=== PATIENT | female | born 1950 | race Caucasian/White ===

== ENCOUNTER → 2016-02-28 | Outpatient (CLI) | payer BC ==
--- NOTE | 2016-02-28 21:23 | WWHP ---
DATE OF SERVICE: 02/28/2016. CHIEF COMPLAINT: The patient is here for her routine gynecologic exam and mammogram. HPI: This is an 85-year-old, G2, P2 with an LMP of 2001. The patient is without gynecologic complaints and denies any postmenopausal bleeding. PAST MEDICAL HISTORY: Chronic hypertension, arthritis, and gastroesophageal reflux disease and irritable bowel syndrome. MEDICATIONS: 1. Metoprolol 100 mg b.i.d. 2. Enalapril. 3. Hydrochlorothiazide 5/12.5 1 daily. 4. Dicyclomine 10 mg daily. 5. Naproxen 500 mg b.i.d. 6. Omeprazole 20 mg b.i.d. 7. Multivitamin daily. 8. Vitamin for her eye daily. 9. Aspirin 325 mg daily. 10. Vitamin D3 1000 units daily. 11. Garlic supplement 100 mg daily. 12. Glucosamine with chondroitin b.i.d. 13. Zyrtec 10 mg daily. 14. Magnesium 400 mg daily. ALLERGIES TO VICODIN AND MORPHINE. 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 FAMILY HISTORY: Unchanged from the 2015 H&P. REVIEW OF SYSTEMS: She has lost 5 pounds over the last year. She denies respiratory, cardiac, or GI problems. PHYSICAL EXAM: Blood pressure 119/77. Height 5 feet 9 inches. Weight 217 pounds. Temperature 98.1, pulse 82. This a well-developed, well-nourished white female who is alert and oriented x3 in no acute distress. HEENT is within normal limits. NECK: Supple without mass or thyromegaly. CHEST AND LUNGS: Clear to auscultation. HEART: Regular rate and rhythm. Breasts are without mass or discharge. Axillary exam is negative for adenopathy. BACK: Negative for CVA tenderness. ABDOMEN: Soft, nontender, without palpable masses. PELVIC EXAM: External genitalia reveals mild atrophy without lesions. Cervix and vagina reveal mild atrophy without lesions. There is no evidence of prolapse. The uterus is midposition, nongravid size and nontender. No palpable adnexal masses or tenderness. Rectovaginal exam is negative for mass or tenderness and is negative for occult blood. EXTREMITIES: Nontender. IMPRESSION: A 65-year-old menopausal female with normal gynecologic exam. PLAN: 1. Pap smear was deferred, since she had a normal one less than 2 years ago. 2. Self-breast examination was discussed. 3. Mammogram will be done today. 4. Osteoporosis prevention was discussed. I have recommended bone density screening. She is declining this at this time. 5. She will return in one year.
--- NOTE | 2016-03-01 07:47 | MM ---
Reason for exam: screening (asymptomatic). Last mammogram was performed 1 year and 1 month ago. History: Patient is postmenopausal. Family history of breast cancer in aunt. Physical Findings: A clinical breast exam by your physician is recommended on an annual basis and results should be correlated with mammographic findings. MG Screening Mammo w CAD Bilateral CC and MLO view(s) were taken. Prior study comparison: January 25, 2015, bilateral MG screening mammo w CAD. October 06, 2013, bilateral MG screening mammo w CAD. August 19, 2012, bilateral digital screening mammo w/CAD. There are scattered fibroglandular densities. No significant changes when compared with prior studies. ASSESSMENT: Negative, BI-RAD 1 RECOMMENDATION: Routine screening mammogram of both breasts in 1 year.
== END | disposition home or self-care (01) ==
LOC: WWCWWP 15:43
PROVIDERS: ATTEND Obstetrics & Gynecology
DX: Z12.31 Encounter for screening mammogram for malignant neoplasm of breast (principal)

== ENCOUNTER 2016-05-02 15:32 | Emergency (ER) | payer BC, OTHER ==
[2016-05-02] MEDS ORDERED: LORazepam 2 MG/ML SYRINGE IV STA (15:41)
[2016-05-02] MEDS ORDERED: SODIUM CHLORIDE 0.9% 1,000 ML IV STA (15:41)
[2016-05-02] MEDS ORDERED: HYDROmorphone 1 MG/ML 1 ML SYRINGE IVP STA (15:41)
[2016-05-02 15:49] VITALS: BP 170/81; PULSE 106; RESP 18
--- NOTE | 2016-05-02 15:59 | ED ---
General Adult HPI - General Chief complaint: Trauma Stated complaint: Trauma Time Seen by Provider: 05/02/16 15:40 Source: EMS, RN notes reviewed, old records reviewed Mode of arrival: EMS Limitations: no limitations - History of Present Illness Initial comments: This is a 65-year-old female to the ER today for evaluation regards to trauma. Patient has history of high blood pressure and takes aspirin. Patient had a fall AT work today. She fell in paling her left Sams and nasal cavity on a piece of metal at is some half is inch in diameter and about 5 inches long. It entering her left Sams and nasal cavities to her skin. Patient at this time denies loss of consciousness has no neurological deficits no dizziness, no problems breathing - Related Data Home Medications Medication Instructions Recorded Confirmed Dicyclomine [Bentyl] 10 mg PO TID 02/01/15 05/02/16 Enalapril/Hydrochlorothiazide 1 tab PO DAILY 02/01/15 05/02/16 [Vaseretic 5-12.5 mg] Metoprolol Tartrate [Lopressor] 100 mg PO BID 02/01/15 05/02/16 Naproxen [Naproxen] 500 mg PO BID 02/01/15 05/02/16 Omeprazole [PriLOSEC] 20 mg PO DAILY 02/01/15 05/02/16 Allergies Allergy/AdvReac Type Severity Reaction Status Date / Time acetaminophen [From Vicodin] AdvReac Nausea & Verified 02/02/15 09:05 Vomiting hydrocodone bitartrate AdvReac Nausea & Verified 02/02/15 09:05 [From Vicodin] Vomiting morphine AdvReac Nausea & Verified 02/02/15 09:05 Vomiting Review of Systems ROS Statement: Those systems with pertinent positive or pertinent negative responses have been documented in the HPI. ROS Other: All systems not noted in ROS Statement are negative. Past Medical History Past Medical History: GERD/Reflux, Hypertension, Osteoarthritis (OA) History of Any Multi-Drug Resistant Organisms: None Reported Past Surgical History: Joint Replacement, Orthopedic Surgery, Tonsillectomy, Tubal Ligation Additional Past Surgical History / Comment(s): LT KNEE SCOPE. LT CARMITA. COLONOSCOPY Past Anesthesia/Blood Transfusion Reactions: No Reported Reaction Smoking Status: Former smoker Past Alcohol Use History: None Reported Additional Past Alcohol Use History / Comment(s): ONLY SMOKED FOR A FEW YEARS AGE 22 Past Drug Use History: None Reported - Past Family History Father Family Medical History: Deep Vein Thrombosis (DVT) General Exam Limitations: no limitations General appearance: alert, in no apparent distress Head exam: Absent: atraumatic (Patient does have metallic foreign body into NaSal cavity, the left lateral direction, mild surrounding bleeding) Eye exam: Present: normal appearance, PERRL, EOMI. Absent: scleral icterus, conjunctival injection, periorbital swelling ENT exam: Present: normal exam, mucous membranes moist Neck exam: Present: normal inspection. Absent: tenderness, meningismus, lymphadenopathy Respiratory exam: Present: normal lung sounds bilaterally. Absent: respiratory distress, wheezes, rales, rhonchi, stridor Cardiovascular Exam: Present: regular rate, normal rhythm, normal heart sounds. Absent: systolic murmur, diastolic murmur, rubs, gallop, clicks GI/Abdominal exam: Present: soft, normal bowel sounds. Absent: distended, tenderness, guarding, rebound, rigid Extremities exam: Present: normal inspection, full ROM, normal capillary refill. Absent: tenderness, pedal edema, joint swelling, calf tenderness Back exam: Present: normal inspection Neurological exam: Present: alert, oriented X3, CN II-XII intact Psychiatric exam: Present: normal affect, normal mood Skin exam: Present: warm, dry, intact, normal color. Absent: rash Course Vital Signs 05/02/16 15:35 Pulse Rate 106 H Respiratory 18 Rate Blood Pressure 170/81 O2 Sat by Pulse 99 Oximetry - Reevaluation(s) Reevaluation #1: 05/02/16 16:58 Call made [facility] for transfer, patient's neurosurgeon Dr. Osorio is currently through [facility] and requesting transfer to that hospital. In speaking with [facility], they are going to be accepting of transfer Reevaluation #2: 05/02/16 16:58 Spoke with family and patient, they're informed of severity of injury, need for surgical removal, questions are answered Reevaluation #3: 05/02/16 16:59 Patient is unanimously stable, resting comfortably EKG Findings - EKG Comments: EKG Findings:: EKG shows sinus tachycardia rate 103, VA 136, QRS 76, QTc 461 Medical Decision Making - Medical Decision Making 65 female to ER for evaluation of fall, with impalement of penetrating object into left neck, object into nasal cavity and fracture of cribriform plate w pneumocephalus, patient will be transported to care of Dr Osorio neurosurgery for removal of foreign body, patient given adequate pain control and IV unasyn for abx prophylaxis - Lab Data Result diagrams: 05/02/16 15:46 05/02/16 15:46 Lab Results 05/02/16 05/02/16 05/02/16 Range/Units 15:46 15:46 15:46 WBC 9.7 (3.8-10.6) k/uL RBC 4.96 (3.80-5.40) m/uL Hgb 14.4 (11.4-16.0) gm/dL Hct 43.4 (34.0-46.0) % MCV 87.4 (80.0-100.0) fL MCH 29.0 (25.0-35.0) pg MCHC 33.2 (31.0-37.0) g/dL RDW 12.5 (11.5-15.5) % Plt Count 212 (150-450) k/uL Neutrophils % 72 % Lymphocytes % 19 % Monocytes % 5 % Eosinophils % 1 % Basophils % 1 % Neutrophils # 6.9 (1.3-7.7) k/uL Lymphocytes # 1.9 (1.0-4.8) k/uL Monocytes # 0.5 (0-1.0) k/uL Eosinophils # 0.1 (0-0.7) k/uL Basophils # 0.1 (0-0.2) k/uL PT (9.0-12.0) sec INR (<1.1) APTT (22.0-30.0) sec Sodium 139 (137-145) mmol/L Potassium 3.9 (3.5-5.1) mmol/L Chloride 99 (98-107) mmol/L Carbon Dioxide 28 (22-30) mmol/L Anion Gap 12 mmol/L BUN 28 H (7-17) mg/dL Creatinine 0.80 (0.52-1.04) mg/dL Est GFR (MDRD) Af Amer >60 (>60 ml/min/1.73 sqM) Est GFR (MDRD) Non-Af >60 (>60 ml/min/1.73 sqM) Glucose 104 H (74-99) mg/dL Calcium 9.7 (8.4-10.2) mg/dL Total Bilirubin 0.5 (0.2-1.3) mg/dL AST 27 (14-36) U/L ALT 32 (9-52) U/L Alkaline Phosphatase 97 (38-126) U/L Total Creatine Kinase 68 (30-135) U/L CK-MB (CK-2) 1.2 (0.0-2.4) ng/mL CK-MB (CK-2) Rel Index 1.8 Troponin I <0.012 (0.000-0.034) ng/mL Total Protein 7.6 (6.3-8.2) g/dL Albumin 4.5 (3.5-5.0) g/dL Amylase 67 (30-110) U/L Lipase 126 (23-300) U/L Serum Alcohol <10 mg/dL 05/02/16 Range/Units 15:46 WBC (3.8-10.6) k/uL RBC (3.80-5.40) m/uL Hgb (11.4-16.0) gm/dL Hct (34.0-46.0) % MCV (80.0-100.0) fL MCH (25.0-35.0) pg MCHC (31.0-37.0) g/dL RDW (11.5-15.5) % Plt Count (150-450) k/uL Neutrophils % % Lymphocytes % % Monocytes % % Eosinophils % % Basophils % % Neutrophils # (1.3-7.7) k/uL Lymphocytes # (1.0-4.8) k/uL Monocytes # (0-1.0) k/uL Eosinophils # (0-0.7) k/uL Basophils # (0-0.2) k/uL PT 10.6 (9.0-12.0) sec INR 1.0 (<1.1) APTT 21.1 L (22.0-30.0) sec Sodium (137-145) mmol/L Potassium (3.5-5.1) mmol/L Chloride (98-107) mmol/L Carbon Dioxide (22-30) mmol/L Anion Gap mmol/L BUN (7-17) mg/dL Creatinine (0.52-1.04) mg/dL Est GFR (MDRD) Af Amer (>60 ml/min/1.73 sqM) Est GFR (MDRD) Non-Af (>60 ml/min/1.73 sqM) Glucose (74-99) mg/dL Calcium (8.4-10.2) mg/dL Total Bilirubin (0.2-1.3) mg/dL AST (14-36) U/L ALT (9-52) U/L Alkaline Phosphatase (38-126) U/L Total Creatine Kinase (30-135) U/L CK-MB (CK-2) (0.0-2.4) ng/mL CK-MB (CK-2) Rel Index Troponin I (0.000-0.034) ng/mL Total Protein (6.3-8.2) g/dL Albumin (3.5-5.0) g/dL Amylase (30-110) U/L Lipase (23-300) U/L Serum Alcohol mg/dL - Radiology Data Radiology results: report reviewed (Chest x-ray and x-ray of pelvis negative for traumatic injury, CT brain and facial bones does show impaled object fracturing Nare, as well as apparant cribriform plate fracture secondary to supple is), image reviewed Critical Care Time Critical Care Time: Yes Total Critical Care Time: 31 Disposition Clinical Impression: Penetrating head trauma, Pneumocephalus Disposition: OTHER INSTITUTION NOT DEFINED Condition: Serious Referrals: Aureliano Beth MD [Primary Care Provider] - 1-2 days - Out of Hospital Transfer - Req. Specs Out of Hospital Transfer - Requested Specifics: Other Emergency Center ([facility])
[2016-05-02 16:02] LABS: Basophils # (A) 0.1 k/uL (0-0.2); Basophils % (A) 1 %; CH 29.9; CHCM 34.3; Eosinophils # (A) 0.1 k/uL (0-0.7); Eosinophils % (A) 1 %; HCT 43.4 % (34.0-46.0); HGB 14.4 gm/dL (11.4-16.0); Luc # (Auto) 0.21; Luc % (Auto) 2; Lymphocytes # (A) 1.9 k/uL (1.0-4.8); Lymphocytes % (A) 19 %; MCHC 33.2 g/dL (31.0-37.0); MCV 87.4 fL (80.0-100.0); Mean Platelet Volume 7.7; Monocytes # (A) 0.5 k/uL (0-1.0); Monocytes % (A) 5 %; Neutrophils # (A) 6.9 k/uL (1.3-7.7); Neutrophils % (A) 72 %; RBC 4.96 m/uL (3.80-5.40); RDW 12.5 % (11.5-15.5); WBC 9.7 k/uL (3.8-10.6); WBC (Perox) 9.71
--- NOTE | 2016-05-02 16:05 | XR ---
EXAMINATION TYPE: XR pelvis AP view DATE OF EXAM: 05/02/2016 4:01 PM CLINICAL HISTORY: Fall injury with pain. TECHNIQUE: A single AP view of the pelvis is obtained. COMPARISON: Left hip x-ray May 28, 2011.. FINDINGS: There is no acute fracture/dislocation evident in the pelvis. There is moderate to severe axial joint space loss with head neck junction spurring in the right hip. Vascular calcification righ t groin is noted. Sacroiliac joints are maintained. Metallic hardware from left hip arthroplasty is p artially imaged. Visualized portion is unremarkable. The overlying soft tissue appears unremarkable. IMPRESSION: There is no acute fracture or dislocation in the pelvis.
--- NOTE | 2016-05-02 16:06 | XR ---
EXAMINATION TYPE: XR chest 1V portable DATE OF EXAM: 05/02/2016 4:01 PM COMPARISON: NONE HISTORY: Fall injury with pain. TECHNIQUE: Single AP portable frontal upright view of the chest is obtained. FINDINGS: Somewhat low lung volumes are present. There is no focal air space opacity, pleural effusi on, or pneumothorax seen. The cardiac silhouette size is upper limits of normal. The osseous struc tures are intact. IMPRESSION: No acute process.
[2016-05-02 16:08] LABS: Prothrombin Time 10.6 sec (9.0-12.0)
[2016-05-02 16:10] LABS: ALT 32 U/L (9-52); AST 27 U/L (14-36); Alcohol <10 mg/dL; Alkaline Phosphatase 97 U/L (38-126); Amylase 67 U/L (30-110); Anion Gap 12 mmol/L; Blood Urea Nitrogen 28 mg/dL (7-17); Calcium 9.7 mg/dL (8.4-10.2); Carbon Dioxide 28 mmol/L (22-30); Chloride 99 mmol/L (98-107); Glucose 104 mg/dL (74-99); Non-African American GFR(MDRD) >60 (>60 ml/min/1.73 sqM); Potassium 3.9 mmol/L (3.5-5.1); Sodium 139 mmol/L (137-145); Total Bilirubin 0.5 mg/dL (0.2-1.3); Total Protein 7.6 g/dL (6.3-8.2)
[2016-05-02 16:21] LABS: Creatine Kinase 68 U/L (30-135)
--- NOTE | 2016-05-02 16:24 | CT ---
EXAMINATION TYPE: CT brain wo con, CT facial bones wo con DATE OF EXAM: 05/02/2016 4:08 PM COMPARISON: NONE HISTORY: Patient fell onto bar at work. EMS had to cut bar off. CT DLP: 1564.60 mGycm Automated exposure control for dose reduction was used. CT head and facial bones are performed withou t contrast. FINDINGS: There is no acute intracranial hemorrhage, mass effect, or midline shift identified. The ventricles and sulci are within normal limits in size. The calvarium is intact though there is pneumocephalus o ernie the anterior right frontal lobe noted. CT scan of facial bones shows metallic bar entering the left nasal cavity with acute comminuted minim ally displaced fracture deformity of the left nasal bridge. There is adjacent soft tissue swelling an d subcutaneous air identified. Nasal septum is deviated to right of midline. Streak artifact from lar ge metallic bar makes evaluation suboptimal. Lesion does not appear to penetrate the cribriform plate and is noted roughly 1.4 cm distance away on coronal image 24 but presence of pneumocephalus suggest s microfracture or fracture extension. Orbital floors and arreola are grossly intact bilaterally. The globes are intact bilaterally. Intracona l fat is preserved. There is dependent opacification or hemorrhage in the bilateral sphenoid sinuses and right maxillary sinus as well as involving the anterior ethmoid sinuses bilaterally and the left posterior ethmoid si nuses and inferior right frontal sinus. Some nondependent opacification or hemorrhage anteriorly in r ight sphenoid sinus is noted. The zygomatic arches are intact bilaterally. The pterygoid plates are intact. The mandible is intact. Temporomandibular joints are maintained bilaterally. IMPRESSION: 1. There is lodged metallic bar nasal cavity confirmed. There are acute minimally displaced nasal bashir dge fractures with fracture extension involving the nasal septum likely present as there is significa nt deviation. There is associated paranasal sinus disease or hemorrhages detailed above. 2. No metallic bar terminal tip does not approach the cribriform plate there is suspected fracture ex tension through the cribriform plate as there is right-sided pneumocephalus present over the frontal lobe. 3. No acute intracranial hemorrhage or midline shift is seen.
[2016-05-02 16:31] LABS: Partial Thromboplastin Time 21.1 sec (22.0-30.0)
[2016-05-02 16:35] LABS: Creatine Kinase MB 1.2 ng/mL (0.0-2.4); Troponin I <0.012 ng/mL (0.000-0.034)
[2016-05-02] MEDS ORDERED: AMPICILLIN-SULBACTAM 3 GM in SODIUM CHLORIDE 0.9% 100 ML IVPB STA (16:43)
[2016-05-02] MEDS ORDERED: DIPH,PERTUS(ACELL)TETVAC-LF 0.5 ML VIAL IM ONE (16:43)
[2016-05-02 18:06] VITALS: TEMP 96.9
== END 2016-05-02 17:49 | disposition other institution (70) ==
LOC: EC 15:32
DX: T17.0XXA Foreign body in nasal sinus, initial encounter (principal); S02.2XXA Fracture of nasal bones, initial encounter for closed fracture; S09.90XA Unspecified injury of head, initial encounter; G93.89 Other specified disorders of brain; W19.XXXA Unspecified fall, initial encounter; Y99.0 Civilian activity done for income or pay; I10 Essential (primary) hypertension; K21.9 Gastro-esophageal reflux disease without esophagitis; Z79.82 Long term (current) use of aspirin; M19.90 Unspecified osteoarthritis, unspecified site; Z79.1 Long term (current) use of non-steroidal anti-inflammatories (NSAID); Z87.891 Personal history of nicotine dependence; Z23 Encounter for immunization
CPT/HCPCS: 36415; 86900; 86901; 80053; 82150; 82550; 82553; 83690; 84484; 85025; 85610; 85730; 86850; 80320; 71010; 72170; 70486; 70450; 90715; 99291; 96365; 96375; J1170; J0295; 90471; 93005

== ENCOUNTER → 2017-04-30 | Outpatient (CLI) | payer BC ==
[2017-04-30 16:26] VITALS: BP 112/78; PULSE 60; RESP 18; TEMP 96.6; BMI 33.6
--- NOTE | 2017-04-30 17:08 | P.HPOB ---
History of Present Illness H&P Date: 04/30/17 Chief Complaint: Patient is here for her routine gynecologic exam and mammogram. This is a 66-year-old with an LMP of 2001. The patient is without gynecologic complaints and denies any postmenopausal bleeding. Review of Systems Patient has gained about 11 pounds over the last year. She denies respiratory, cardiac, or G.I. problems. Past Medical History Past Medical History: GERD/Reflux, Hypertension, Osteoarthritis (OA) History of Any Multi-Drug Resistant Organisms: None Reported Past Surgical History: Joint Replacement, Orthopedic Surgery, Tonsillectomy, Tubal Ligation Additional Past Surgical History / Comment(s): LT KNEE SCOPE. LT CARMITA. COLONOSCOPY. hip replacement-left 2011. Colonoscopy in 2016 per the patient. Past Anesthesia/Blood Transfusion Reactions: No Reported Reaction Past Psychological History: No Psychological Hx Reported Smoking Status: Former smoker Past Alcohol Use History: None Reported Past Drug Use History: None Reported - Past Family History Mother Additional Family Medical History / Comment(s): Healthy, no history Father Family Medical History: Deep Vein Thrombosis (DVT), Myocardial Infarction (OR) Additional Family Medical History / Comment(s): Maternal aunt had breast cancer , grandmother had pancreatic cancer. Medications and Allergies Home Medications Medication Instructions Recorded Confirmed Type Metoprolol Tartrate [Lopressor] 100 mg PO BID 02/01/15 04/30/17 History Naproxen [Naproxen] 500 mg PO BID 02/01/15 04/30/17 History Omeprazole [PriLOSEC] 20 mg PO DAILY 02/01/15 04/30/17 History Aspirin 325 mg PO DAILY 04/26/17 04/30/17 History Cetirizine HCl [Zyrtec] 10 mg PO DAILY 04/26/17 04/30/17 History Cholecalciferol [Vitamin D3] 1,000 unit PO DAILY 04/26/17 04/30/17 History Dicyclomine [Bentyl] 10 mg PO QID 04/26/17 04/30/17 History Garlic 1 each PO DAILY 04/26/17 04/30/17 History Glucosam/Irwin-Msm1/C/Olman/Bosw 1 each PO DAILY 04/26/17 04/30/17 History [Glucosamine-Chondroitin Tablet] Multivitamins, Thera [Multivitamin 1 tab PO DAILY 04/26/17 04/30/17 History (formulary)] Ascorbic Acid [Vitamin C] 1,000 mg PO DAILY 04/30/17 04/30/17 History Magnesium Oxide [Mag-Ox] 250 mg PO DAILY 04/30/17 04/30/17 History [place]-3 Fatty Acids/Fish Oil [Fish 1 each PO DAILY 04/30/17 04/30/17 History Oil 1,000 mg Softgel] Phentermine HCl [Adipex-P] 37.5 mg PO QAM 04/30/17 04/30/17 History Terbinafine [LamISIL] 250 mg PO DAILY 04/30/17 04/30/17 History Zinc 50 mg PO DAILY 04/30/17 04/30/17 History Allergies Allergy/AdvReac Type Severity Reaction Status Date / Time acetaminophen [From Vicodin] AdvReac Nausea & Verified 02/02/15 09:05 Vomiting hydrocodone bitartrate AdvReac Nausea & Verified 02/02/15 09:05 [From Vicodin] Vomiting morphine AdvReac Nausea & Verified 02/02/15 09:05 Vomiting Exam - Vital Signs Vital signs: Vital Signs Temp Pulse Resp BP 04/30/17 16:18 96.6 F L 60 18 112/78 Intake and Output 04/30/17 04/30/17 04/30/17 06:59 14:59 22:59 Other: Weight 103.419 kg Height 5'9". BMI 33.7. This is a well-developed well-nourished white female who is alert and oriented times 3 in no acute distress. HEENT: Within normal limits. NECK: Supple without mass or thyromegaly. CHEST AND LUNGS: Clear to auscultation. HEART: Regular rate and rhythm. BREASTS: Are without mass or discharge. AXILLARY EXAM: Negative for adenopathy. BACK: Negative for CVA tenderness. ABDOMEN: Soft, nontender, without palpable masses. PELVIC EXAM: Normal external genitalia with mild to moderate atrophy. Cervix and vagina appear normal with mild to moderate atrophy. There is no unusual discharge. There is no evidence of prolapse. The uterus is midposition, nongravid size and nontender. There are no palpable adnexal masses or tenderness. RECTAL EXAM: recto vaginal exam is negative for mass or tenderness and is negative for occult blood. EXTREMITIES: Nontender. IMPRESSION: 1. 66-year-old menopausal female with normal gynecologic exam. PLAN: 1. Pap smear was performed. 2. Self breast examination was discussed. 3. Screening mammogram will be done today. 4. Osteoporosis prevention was discussed. I have recommended bone density screening which she again has declined. 5. She will return in one year.
--- NOTE | 2017-05-02 07:07 | MM ---
Reason for exam: screening (asymptomatic). Last mammogram was performed 1 year and 2 months ago. History: Patient is postmenopausal. Family history of breast cancer in aunt. Physical Findings: A clinical breast exam by your physician is recommended on an annual basis and results should be correlated with mammographic findings. MG 3D Screening Mammo W/Cad Bilateral CC and MLO view(s) were taken. Prior study comparison: February 28, 2016, bilateral MG screening mammo w CAD. January 25, 2015, bilateral MG screening mammo w CAD. The breast tissue is heterogeneously dense. This may lower the sensitivity of mammography. No suspicious abnormality. No significant changes when compared with prior studies. ASSESSMENT: Negative, BI-RAD 1 RECOMMENDATION: Routine screening mammogram of both breasts in 1 year.
== END | disposition home or self-care (01) ==
LOC: WWCWWP 15:44
PROVIDERS: ATTEND Obstetrics & Gynecology
DX: Z12.31 Encounter for screening mammogram for malignant neoplasm of breast (principal)
CPT/HCPCS: 77063; 77067

== ENCOUNTER → 2017-06-07 | Outpatient (CLI) | payer BC ==
[2017-06-07 11:51] LABS: Basophils # (A) 0.1 k/uL (0-0.2); Basophils % (A) 1 %; Eosinophils # (A) 0.1 k/uL (0-0.7); Eosinophils % (A) 3 %; HCT 42.8 % (34.0-46.0); Lymphocytes # (A) 2.1 k/uL (1.0-4.8); Lymphocytes % (A) 37 %; MCH 28.1 pg (25.0-35.0); MCHC 32.7 g/dL (31.0-37.0); MCV 85.8 fL (80.0-100.0); Mean Platelet Volume 7.4; Monocytes # (A) 0.5 k/uL (0-1.0); Monocytes % (A) 9 %; Neutrophils # (A) 2.7 k/uL (1.3-7.7); Neutrophils % (A) 48 %; Platelet Count 194 k/uL (150-450); RBC 4.99 m/uL (3.80-5.40); RDW 12.6 % (11.5-15.5); WBC 5.7 k/uL (3.8-10.6)
[2017-06-07 12:02] LABS: INR 1.1 (<1.2); Prothrombin Time 10.6 sec (9.0-12.0)
[2017-06-07 12:13] LABS: Potassium 5.3 mmol/L (3.5-5.1)
== END | disposition home or self-care (01) ==
LOC: LABPAT 11:05
PROVIDERS: ATTEND Orthopaedic Surgery
DX: Z01.812 Encounter for preprocedural laboratory examination (principal); M17.12 Unilateral primary osteoarthritis, left knee
CPT/HCPCS: 36415; 80051; 85025; 85610; 85730; 87070

== ENCOUNTER 2017-06-17 07:30 | Inpatient (IN) | payer BC, MEDICARE ==
[2017-06-10 17:37] VITALS: BMI 32.9
--- NOTE | 2017-06-16 12:37 | HP ---
HISTORY AND PHYSICAL Surgery is scheduled for 06/17/2017. Ayana Couch is a 66-year-old patient seen with symptomatic left knee osteoarthritis. Treatment options were discussed. She elected to proceed with left total knee arthroplasty. Consent regarding the procedure was obtained. Medical clearance was provided by Dr. Beth. PAST MEDICAL HISTORY: Hypertension, gastroesophageal reflux disease. PAST SURGICAL HISTORY: Left knee arthroscopy, tonsillectomy, left total hip arthroplasty. DAILY MEDICATIONS: Enalapril/hydrochlorothiazide, Naprosyn, Prilosec, metoprolol, [id number] vitamins. ALLERGIES: None reported. SOCIAL HISTORY: Patient denies tobacco use. PHYSICAL EXAMINATION: Evaluation of the left knee: Range of motion is 0-115 degrees. There is tenderness along the medial lateral joint lines. Positive medial and lateral Franklin's. Crepitus along the medial, lateral and patellofemoral compartments with range of motion. Pain with patellofemoral compression. Ligaments stable. Hip rotation without pain. Distal neurovascular exam intact. RADIOGRAPHS: Left knee radiographs reveal severe tricompartmental osteoarthritis. IMPRESSION: 1. Left knee osteoarthritis. 2. Hypertension. 3. Gastroesophageal reflux disease. PLAN: Left total knee arthroplasty. MMODL / IJN: [id number] /
[~2017-06-17 07:30] MED LIST: ACETAMINOPHEN TAB 500 MG TAB PO ONE; LIDOCAINE 1% 20 ML VIAL (10MG/ML) FOR IV START INTRADERMA PRN; MELOXICAM 7.5 MG TAB PO ONE; ONDANSETRON ODT 4 MG TAB PO ONE; TRANEXAMIC ACID 1,000 MG in SODIUM CHLORIDE 0.9% 100 ML IVPB ONE; ceFAZolin IN SWFI 2 GM/20 ML SYRINGE IVP ONE; fentaNYL (PF) 50 MCG/ML 2 ML AMP IV PRN
[2017-06-17] MEDS ORDERED: MIDAZOLAM 2 MG/2 ML VIAL ONE (11:30)
[2017-06-17] MEDS: LACTATED RINGERS 1,000 ML IV SCH ×2 (12:10→18:40)
[2017-06-17] MEDS ORDERED: ONDANSETRON 4 MG/2 ML VIAL IVP ONE (12:10)
[2017-06-17] MEDS: ROPIVACAINE 246.25 MG, EPINEPHrine 0.5 MG, KETOROLAC 30 MG, cloNIDine HCL/PF 80 MCG, WA... MISCELLANE ONE ×10 (13:55→14:46)
[2017-06-17] MEDS ORDERED: ceFAZolin 3,000 MG in SODIUM CHLORIDE 0.9% IRRIGATIO 3,000 ML IRRIGATION ONE (14:06)
[2017-06-17] MEDS ORDERED: LACTATED RINGERS 1,000 ML IV ONE (14:35)
--- NOTE | 2017-06-17 15:29 | P.OP ---
Date of Procedure: 06/17/17 Preoperative Diagnosis: Left knee osteoarthritis Postoperative Diagnosis: Left knee osteoarthritis Procedure(s) Performed: Left total knee arthroplasty Implants: 1. Juan M persona size 7 left standard cruciate retaining cemented femur 2. Juan M persona size E left cemented tibial 3. Juan M persona 10 mm medial congruent polyethylene tibial insert 4. Juan M persona 35 mm all polyethylene cemented patella Anesthesia: regional (Adductor canal catheter) Surgeon: Kemal Agustin Daycare Manager #1: Tushar Crespo Estimated Blood Loss (ml): 50 Pathology: other (Bone) Condition: stable Disposition: PACU Indications for Procedure: 66-year-old patient seen with symptomatic left knee osteoarthritis. After treatment options were discussed, she elected to proceed with total knee arthroplasty. Operative Findings: See description of procedure Description of Procedure: Patient was taken to the operative suite after having an adductor canal catheter placed by the department of anesthesia. Patient underwent a spinal anesthetic by the department of anesthesia. Patient was given preoperative IV intake antibiotics and TXA. A well-padded tourniquet was placed about the left lower extremity. The lower extremity was then prepped and draped in the normal sterile orthopedic fashion. The extremity was elevated, a tourniquet was insufflated to 300. A standard anterior incision was made sharply through skin. Dissection was taken down through the subcutaneous soft tissues down to the extensor mechanism. A medial arthrotomy was performed, patella was everted and knee was flexed. There was advanced osteoarthritis noted. A proximal tibial cutting guide was positioned. Proximal tibial cut was made. A distal intramedullary femoral cutting guide was positioned, distal femoral cut made. We placed the appropriate sizing guide and selected the appropriate size. A distal 4-in-1 femoral cutting block was positioned, distal femoral cuts were made. We now placed a trial femoral component into position, along with an appropriate size tibial tray and insert. We now took the knee through range of motion and had full extension good flexion and good overall soft tissue balance noted. The patella was everted and a flush cut made with patellar quad tendon. We templated the patella, appropriate drill holes were made. An appropriate trial patella was positioned, knee was taken through full range of motion with the patella tracking very nicely. The trial patella was removed. Drill holes were made through the femoral component. All trial components were removed after marking off the appropriate rotation of the tibia. Retractors were now positioned along the proximal tibia. An appropriate keel punch was made with the appropriate size tibial guide. At this point appropriate size implants were chosen and opened. The joint was irrigated copiously with pulse lavage mechanical irrigation. The deep soft tissues were infiltrated with local analgesic. We mixed antibiotic methylmethacrylate. Once the methyl methacrylate was ready, the tibial component was cemented into place removing any excess methylmethacrylate. The femoral component was cemented into place removing the removing any excess methylmethacrylate. We then inserted the appropriate size polyethylene tibial insert. We made sure that it was locked into position. We took the knee into full extension, and then back in a flexion making sure we had removed any excess methylmethacrylate. The patellar component was then cemented down and secured with clamp. Excess methylmethacrylate removed. We kept the knee in full extension, patellar clamp in position until methylmethacrylate had hardened. Once it had hardened the patellar clamp was removed. The knee was taken through full range of motion. The patella tracked nicely. There was good soft tissue balancing. The tourniquet was now released. Additional hemostasis was achieved via electrocautery. A second gram of TXA was given. The superficial soft tissues were infiltrated local analgesic. The wound was irrigated with pulse lavage mechanical irrigation. The extensor mechanism was repaired with Vicryl. We checked the repair with range of motion and it was stable. The subcutaneous soft tissues were repaired with Vicryl in layers. The skin was approximated with pernio/Dermabond. Sterile dressings were applied followed by loose web roll and Luisito bandage. The patient was transferred to a bed, and taken to recovery in stable and satisfactory condition. Neri PEREZ assisted with the procedure.
[2017-06-17] MEDS ORDERED: hydrOXYzine PAMOATE 25 MG CAP PO PRN (15:30)
[2017-06-17] MEDS ORDERED: MORPHINE SULFATE 4 MG/ML SYRINGE IVP PRN ×3 (15:30)
[2017-06-17] MEDS ORDERED: ONDANSETRON 4 MG/2 ML VIAL IVP PRN (15:30)
[2017-06-17] MEDS ORDERED: NALOXONE 0.4 MG/ML 1 ML VIAL IV PRN (15:30)
[2017-06-17] MEDS ORDERED: HYDROcodone/APAP 7.5-325MG 1 EACH TAB PO PRN ×2 (15:30)
[2017-06-17] MEDS ORDERED: ROPIVACAINE 1,100 MG, SODIUM CHLORIDE 0.9% 330 ML MISCELLANE PRN ×2 (15:43)
--- NOTE | 2017-06-17 15:57 | XR ---
EXAMINATION TYPE: XR knee limited LT DATE OF EXAM: 06/17/2017 CLINICAL HISTORY: Left knee pain and arthritis status post total knee replacement. TECHNIQUE: Portable AP and crosstable lateral views of the left knee are obtained immediately postop eratively. COMPARISON: None FINDINGS: Metallic hardware from total left knee arthroplasty is seen and appears satisfactory in al ignment and position. There is evidence of recent surgery with diffuse subcutaneous gas and soft tis villa swelling noted. IMPRESSION: METALLIC HARDWARE FROM TOTAL LEFT KNEE ARTHROPLASTY IS SATISFACTORY IN ALIGNMENT.
--- NOTE | 2017-06-17 17:18 | P.CONS ---
History of Present Illness - Reason for Consult Consult date: 06/17/17 medical management Requesting physician: Kemal Agustin - Chief Complaint left TKA - History of Present Illness 66-year-old female with history of hypertension Patient presented electively for left total knee arthroplasty due to severe osteoarthritis of left knee refractory to conservative management. She tolerated procedure well denies any immediate complications perioperatively, she tolerated liquid drinks after surgery denies any nausea or vomiting denies any chest pain or trouble breathing at this point. Pain in the left knee is well tolerated and controlled at this point. I reviewed patient medications with her, she indicated that her doctor has stopped the diuretic and enalapril few weeks ago. She reports that she has been taking the terbinafine for couple months now due to fungal infection her toe nails, she reported also taking Adipex-P for the past 3 months. She has held aspirin for a week in preparation for surgery Review of Systems Constitutional: Patient denies fever, denies chills, denies night sweating, denies significant weight changes Eyes: Patient denies visual changes, denies eye pain ENT: Patient denies ear pain, denies rhinorrhea, denies sore throat Cardiovascular: Patient denies chest pain, denies exertional dyspnea, denies peripheral leg edema, denies orthopnea, denies paroxysmal nocturnal dyspnea Respiratory:Patient denies cough, denies wheezing, denies shortness of breath Gastrointestinal: Patient denies diarrhea, denies constipation, denies nausea , denies vomiting, denies abdominal pain Genitourinary: Patient denies dysuria, denies hematuria, denies changes in urinary habits, denies genital lesions Musculoskeletal: Patient denies muscle pain, bilateral knee pain Psychiatric: Patient denies changes in mood or memory, denies suicidal ideation, denies anxiety Endocrine: Patient denies heat intolerance, denies cold intolerance, denies excessive thirst, denies polyuria Neurological: Patient denies focal neurologic deficits, denies weakness, denies numbness, denies tingling Hem/Lymphatic: Patient denies bleeding tendency, denies bruising, denies swollen lymph glands Allergic/Immun: Patient denies recent allergic reactions Skin: Patient denies rashes, denies pruritis, denies ulcers Past Medical History Past Medical History: GERD/Reflux, Hearing Disorder / Deafness, Hypertension, Osteoarthritis (OA) Additional Past Medical History / Comment(s): IBS. VARICOSE VEINS. MINOR EDEMA ANKLES OCC. HX TACHYCARDIA. History of Any Multi-Drug Resistant Organisms: None Reported Past Surgical History: Joint Replacement, Orthopedic Surgery, Tonsillectomy, Tubal Ligation Additional Past Surgical History / Comment(s): LT KNEE SCOPE. NASAL SURGERY; LATER SINUS SURGERY. LT CARMITA. COLONOSCOPY Past Anesthesia/Blood Transfusion Reactions: No Reported Reaction Smoking Status: Former smoker - Past Family History Mother Additional Family Medical History / Comment(s): Healthy, no history Father Family Medical History: Deep Vein Thrombosis (DVT) Additional Family Medical History / Comment(s): Maternal aunt had breast cancer , grandmother had pancreatic cancer. Medications and Allergies Home Medications Medication Instructions Recorded Confirmed Type Metoprolol Tartrate [Lopressor] 100 mg PO BID 02/01/15 06/17/17 History Naproxen [Naproxen] 500 mg PO BID 02/01/15 06/17/17 History Omeprazole [PriLOSEC] 20 mg PO DAILY 02/01/15 06/17/17 History Aspirin 325 mg PO DAILY 04/26/17 06/17/17 History Cholecalciferol [Vitamin D3] 1,000 unit PO DAILY 04/26/17 06/17/17 History Dicyclomine [Bentyl] 10 mg PO TID PRN 04/26/17 06/17/17 History Garlic 1,000 mg PO DAILY 04/26/17 06/17/17 History Multivitamins, Thera [Multivitamin 1 tab PO DAILY 04/26/17 06/17/17 History (formulary)] Magnesium Oxide [Mag-Ox] 500 mg PO DAILY 04/30/17 06/17/17 History [place]-3 Fatty Acids/Fish Oil [Fish 1 cap PO BID 04/30/17 06/17/17 History Oil 1,000 mg Softgel] Phentermine HCl [Adipex-P] 37.5 mg PO QAM 04/30/17 06/17/17 History Terbinafine [LamISIL] 250 mg PO DAILY 04/30/17 06/17/17 History Glucosam/Irwin-Msm1/C/Olman/Bosw 1 tab PO BID 06/10/17 06/17/17 History [Glucosamine-Chondroitin Tablet] Optivite Eye Supplement 1 tab PO DAILY 06/10/17 06/17/17 History Acetaminophen Tab [Tylenol Tab] 1,000 mg PO Q6HR 06/17/17 06/17/17 History Allergies Allergy/AdvReac Type Severity Reaction Status Date / Time hydrocodone bitartrate AdvReac Nausea, Verified 06/17/17 15:24 [From Vicodin] BAD HEADACHE morphine AdvReac Nausea, Verified 06/17/17 15:24 BAD HEADACHE sulfamethoxazole AdvReac HEADACHE Verified 06/17/17 15:24 [From Bactrim] AND NAUSEA trimethoprim [From Bactrim] AdvReac HEADACHE Verified 06/17/17 15:24 AND NAUSEA Physical Exam Vitals: Vital Signs Temp Pulse Resp BP Pulse Ox 06/17/17 16:05 64 18 111/68 99 06/17/17 15:50 66 16 106/62 98 06/17/17 15:38 97.1 F L 68 16 114/64 99 06/17/17 12:47 60 16 132/73 100 06/17/17 12:16 97 F L 58 L 16 128/84 96 Intake and Output 06/17/17 06/17/17 06/17/17 06:59 14:59 22:59 Intake Total 1301 100 Output Total 50 Balance 1251 100 Intake: IV 1301 100 Output: Estimated Blood Loss 50 Constitutional: No acute distress, conversant, pleasant Eyes: Anicteric sclerae, moist conjunctiva, no lid-lag Pupils equal round reactive to light ENMT: NC/AT Oropharynx clear, no erythema, or exudates Neck: Supple, FROM, no masses, or JVD No carotid bruits No thyromegaly Lungs: Clear to auscultation Clear to percussion Normal respiratory effort, no accessory muscle use Cardiovascular: Heart regular in rate and rhythm, No murmurs, gallops, or rubs No peripheral edema Abdominal: Soft Nontender, no guarding, rebound or rigidity Abdomen moving with respiration Normoactive bowel sounds No hepatomegaly, No splenomegaly No palpable mass No abdominal wall hernia noted Skin: Normal temperature, tone, texture, turgor No induration No subcutaneous nodules No rash, lesions No ulcers Extremities: Thickening of the left toenails No digital cyanosis No clubbing Pedal pulses intact and symmetrical Radial pulses intact and symmetrical No calf tenderness Psychiatric: Alert and oriented to person, place and time Appropriate affect fair judgment Neuro Muscles Strength 5/5 in all 4 extremities except for limited exam over the left lower extremity due to pain surgery today for her left knee, surgical dressing in place, looks intact try and clean. Ice packs over the left knee Sensation to light touch grossly present throughout Cranial nerves II-XII grossly intact No focal sensory deficits Lymphatics: no palpable cervical or supraclavicular , or inguinal lymph nodes Results CBC & Chem 7: 06/17/17 11:50 Assessment and Plan Assessment: 66-year-old female with history of hypertension, presented for elective left total knee arthroplasty due to severe arthritis refractory to conservative management. She tolerated procedure well medicine was consulted for medical management postoperatively Plan: #Left knee arthritis status post left total knee arthroplasty postoperative day 0 DVT prophylaxis per orthopedics Pain control #Hypertension currently controlled Continue with metoprolol #Gastroesophageal acid reflux Continue with PPI #DVT prophylaxis on Lovenox per orthopedics #Obesity Patient counseled regarding lifestyle modification and weight loss Patient uses AdipexP at home #Onychomycosis of the toenails Patient reports receiving terbinafine for 2-3 months Patient was counseled that this medication is usually given for 12 weeks I will check neutrophils count due to possible side effect of this medication #Follow up morning labs Thank you for allowing us to participate in the care of this patient. Do not hesitate to contact us with questions. Someone can be reached from the [facility] hospitalist group at all hours of the day at [phone].
[2017-06-17] MEDS: traMADol 50 MG TAB PO SCH ×2 (18:39→22:00)
[2017-06-17] MEDS ORDERED: SENNOSIDES-DOCUSATE SODIUM 1 EACH TAB PO SCH (21:00)
[2017-06-17] MEDS: METOPROLOL TARTRATE 50 MG TAB PO SCH (21:57)
[2017-06-17] MEDS: ceFAZolin IN SWFI 2 GM/20 ML SYRINGE IVP SCH (21:57)
[2017-06-18 01:11] VITALS: RESP 14
[2017-06-18] MEDS: LACTATED RINGERS 1,000 ML IV SCH ×2 (05:30)
--- NOTE | 2017-06-18 06:44 | P.PN ---
Progress Note - Text 06/18 641am 66-year-old female status post total knee replacement by Dr. Agustin. Patient has an On-Q pump for postop pain control with solution running at 8 mL an hour. Patient has VAS of 2 at rest, doing well. Plan to continue On-Q pump infusion
--- NOTE | 2017-06-18 06:49 | P.ONQ ---
Anesthesiology Proc Note - PNB - Peripheral Nerve Block Performed Left Adductor Canal Infusion Time Out Performed: Yes Procedure Start Time: 12:31 Procedure Stop Time: 12:39 Indication: Acute Post-Operative Pain, Requested by physician Sedation Type: Sedate with meaningful contact maintained Preparation: Sterile Dressing Position: Supine Catheter: Indwelling Needle Types: On-Q Needle Size: 50mm (2") Needle Gauge: 21 Technique: Ultrasound Injectate: 0.5% Ropivacaine (see comment for volume) (ropi .5% 30cc) Blood Aspirated: No Pain Paresthesia on Injection Noted: No Resistance on Injection: Normal Events: Uneventful and Well Tolerated
[2017-06-18 07:28] LABS: Basophils % (A) 1 %; Eosinophils # (A) 0.1 k/uL (0-0.7); Eosinophils % (A) 1 %; HCT 38.5 % (34.0-46.0); Lymphocytes # (A) 1.3 k/uL (1.0-4.8); Lymphocytes % (A) 19 %; MCHC 33.7 g/dL (31.0-37.0); Monocytes # (A) 0.4 k/uL (0-1.0); Monocytes % (A) 6 %; Neutrophils # (A) 4.9 k/uL (1.3-7.7); Neutrophils % (A) 72 %; Platelet Count 160 k/uL (150-450); RBC 4.48 m/uL (3.80-5.40); WBC 6.9 k/uL (3.8-10.6)
[2017-06-18] MEDS ORDERED: PANTOPRAZOLE 40 MG TABLET PO SCH (07:30)
[2017-06-18] MEDS: ceFAZolin IN SWFI 2 GM/20 ML SYRINGE IVP SCH (07:34)
[2017-06-18 07:36] VITALS: BP 121/79; PULSE 67; TEMP 98.1
[2017-06-18 07:38] LABS: Anion Gap 13 mmol/L; Blood Urea Nitrogen 16 mg/dL (7-17); Calcium 9.1 mg/dL (8.4-10.2); Carbon Dioxide 24 mmol/L (22-30); Chloride 103 mmol/L (98-107); Glucose 91 mg/dL (74-99); Potassium 4.3 mmol/L (3.5-5.1); Sodium 140 mmol/L (137-145)
[2017-06-18] MEDS: traMADol 50 MG TAB PO SCH ×2 (08:19→13:00)
[2017-06-18] MEDS: METOPROLOL TARTRATE 50 MG TAB PO SCH (08:21)
[2017-06-18] MEDS ORDERED: FAMOTIDINE 20 MG TAB PO SCH (09:00)
[2017-06-18] MEDS ORDERED: ENOXAPARIN 30 MG/0.3 ML SYRINGE SQ SCH (09:00)
[2017-06-18] MEDS ORDERED: MELOXICAM 7.5 MG TAB PO SCH (09:00)
[2017-06-18] MEDS ORDERED: HYDROmorphone 2 MG TAB PO PRN ×2 (09:17→09:18)
[2017-06-18] MEDS ORDERED: HYDROmorphone 4 MG TABLET PO PRN (09:18)
--- NOTE | 2017-06-18 09:55 | P.PN ---
Subjective Progress Note Date: 06/18/17 Principal diagnosis: Patient seen today for postoperative medical management Patient seen and examined, doing well no new complaints, tolerating diet, denies nausea or vomiting, denies chest pain or trouble breathing, reports that pain in her left knee as well tolerate and controlled. She participated with physical therapy. She is urinating with no issues Objective - Vital Signs Vital signs: Vital Signs Temp 98.1 F 06/18/17 07:00 Pulse 67 06/18/17 07:00 Resp 14 06/18/17 07:00 BP 121/79 06/18/17 07:00 Pulse Ox 97 06/18/17 07:00 Intake & Output 06/17/17 06/18/17 06/18/17 18:59 06:59 18:59 Intake Total 1401 1300 120 Output Total 50 Balance 1351 1300 120 Weight 101.151 kg Intake: IV 1401 Intake, IV Titration 360 Amount Lactated Ringers 1,000 ml 360 @ 80 mls/hr IV .[id number] TERESITA Rx#:[id number] Oral 940 120 Output: Estimated Blood Loss 50 Other: Voiding Method Toilet # Voids 1 1 # Bowel Movements 0 - Exam Constitutional: vital signs stable, Not in acute distress, pleasant, conversant Lungs: Clear to auscultation bilaterally, clear to percussion, normal respiratory effort no use of accessory muscles Cardiovascular: Regular rate and rhythm, no murmurs, no gallops, no rubs, no peripheral edema Gastrointestinal: Soft, no tenderness to palpation, no palpable hepatosplenomegally, bowel sounds positive Extremities: No digital cyanosis or clubbing, peripheral pulses palpable and equal over bilateral radial arteries and dorsalis pedis artery, no calf muscle tenderness, surgical dressing over the left knee intact clean and dry. Psych: Alert, oriented to place, person and time, appropriate affect, intact judgment - Labs CBC & Chem 7: 06/18/17 06:47 06/18/17 06:47 Assessment and Plan Assessment: 66-year-old female with history of hypertension, presented for elective left total knee arthroplasty due to severe arthritis refractory to conservative management. She tolerated procedure well medicine was consulted for medical management postoperatively Plan: #Left knee arthritis status post left total knee arthroplasty postoperative day 1 DVT prophylaxis per orthopedics, full dose aspirin twice a day Pain control #Hypertension currently controlled Continue with metoprolol #Gastroesophageal acid reflux Continue with PPI #DVT prophylaxis on Lovenox per orthopedics while inpatient #Obesity Patient counseled regarding lifestyle modification and weight loss Patient uses AdipexP at home #Onychomycosis of the toenails Patient reports receiving terbinafine for 2-3 months Patient was counseled that this medication is usually given for 12 weeks Absolute neutrophil count is within normal range Labs reviewed and unremarkable Patient cleared from internal medicine standpoint for discharge Follow-up PCP in 3-5 days
[2017-06-18] MEDS ORDERED: ASPIRIN 81 MG PO SCH (10:00)
--- NOTE | 2017-06-18 10:46 | P.PN ---
Subjective Progress Note Date: 06/18/17 Principal diagnosis: Status post left total knee arthroplasty Patient seen today resting in her hospital bed, she appears comfortable. Her pain is well-controlled. She denies any headaches, lightheadedness, chest pain or shortness of breath. Objective - Vital Signs Vital signs: Vital Signs Temp 98.1 F 06/18/17 07:00 Pulse 67 06/18/17 07:00 Resp 14 06/18/17 07:00 BP 121/79 06/18/17 07:00 Pulse Ox 97 06/18/17 07:00 Intake & Output 06/17/17 06/18/17 06/18/17 18:59 06:59 18:59 Intake Total 1401 1300 120 Output Total 50 Balance 1351 1300 120 Weight 101.151 kg Intake: IV 1401 Intake, IV Titration 360 Amount Lactated Ringers 1,000 ml 360 @ 80 mls/hr IV .[id number] TERESITA Rx#:[id number] Oral 940 120 Output: Estimated Blood Loss 50 Other: Voiding Method Toilet # Voids 1 1 # Bowel Movements 0 - Exam Left lower extremity: Incision is clean, dry, and intact. The prineo tape is in good condition. There is minimal soft tissue swelling and ecchymosis surrounding the medial and lateral aspects of the incision. Calf is soft, no tenderness with palpation. Plantar flexion, dorsiflexion, EHL, FHL are intact. Sensory exam to light touch throughout the extremity is intact, dorsal pedis pulses 2+. - Labs CBC & Chem 7: 06/18/17 06:47 06/18/17 06:47 Assessment and Plan Plan: Assessment: 1. Postop day 1 status post left total knee arthroplasty Plan: Pain control, we'll discharge home on oral medication GI and DVT prophylaxis, 325 mg aspirin twice a day for a month Wound care instructions discussed Home therapy and nursing after discharge Medical recommendations Discharge planning: Patient will be discharged home likely this afternoon Time with Patient: Less than 30
--- NOTE | 2017-06-18 10:51 | P.DS ---
Providers Date of admission: 06/17/17 11:11 Expected date of discharge: 06/18/17 Attending physician: Kemal Agustin Consults: 06/17/17 15:30 Consult Physician Routine Consulting Provider: Vinay Navarro Consult Reason/Comments: Medical management Do you want consulting provider notified?: Yes Primary care physician: Aureliano [facility] Hospital Course: Date of admission: 06/17/2017 Date of discharge: 06/18/2017 Admission diagnosis: Status post left total knee arthroplasty Discharge diagnosis: Same Attending physician: Mary Agustin Surgical procedures: Left total knee arthroplasty Brief history: Patient is a 66-year-old female with a history of has a primary left knee osteoarthritis. At this point patient has failed conservative treatment measures and has opted to proceed with a elective left total knee arthroplasty. Hospital course: Details of patient's surgery can be found in operative report. Patient tolerated the procedure well and was subsequently transported to orthopedic floor. Patient's orthopeidc and medical care was provided daily. Patient had daily laboratory tests performed for evaluation of overall blood counts. Patient had daily physical therapy to include strengthening range of motion as well as education with walker ambulation. Patient had daily CPM usage as part of their physical therapy program. Patient was treated with Lovenox for their postoperative DVT prophylaxis during their inpatient stay. Patient was noted to have a relatively uneventful postoperative course. Patient reported satisfactory pain control with oral pain medications by postoperative day 0. Patient showed satisfactory progress with physical therapy. Patient moved steadily through the program and had no difficulty meeting the goals by postoperative day 1. Given patient's otherwise satisfactory course and having met physical therapy goals, plan is to discharge patient home on postoperative day 1. Discharge condition/disposition: Patient will be discharged home in stable condition. Discharge medications: Instructions are given on resumption of patient's normal daily medications per primary care recommendation, in addition patient will be prescribed Monmouth 7.5 mg/325 mg, tramadol 50 mg, Colace 100 mg, aspirin 325 mg. Discharge instructions: 1. Wound care and infection precautions, keep incision dry and covered while showering, no lotions, creams, moisturizers. No soaking, tubs, pools, hottubs. Do not scrub over the incision. 2. Weight-bear [as tolerated] with walker / cane until follow-up. 3. Ice and elevate when necessary. Do not exceed 20 minutes per hour with ice pack. 4. Utilize compression sleeve until seen at first follow up appointment. 5. Visiting nursing care. 6. Home physical therapy [including home CPM]. 7. Pain meds and anticoagulants per prescription. 8. Pain medication has potential to cause constipation. Increase oral fluid and fiber intake. Contact primary care provider if you have not had a bowel movement within 48 hours after discharge 9. No anti-inflammatory medication until discussed at first post operative visit, this including Motrin, Aleve, Mobic, Diclofenac. 10. Follow up in office at 2 weeks postop with Neri Crespo PA-C 11. Follow up with your primary care doctor 7-10 days after discharge. 12. Contact [facility] with any questions, . Procedures: Left total knee arthroplasty Patient Condition at Discharge: Good Plan - Discharge Summary Discharge Rx Participant: Yes New Discharge Prescriptions: New Aspirin 325 mg PO BID #60 tab Docusate [Colace] 100 mg PO DAILY #30 capsule HYDROcodone/APAP 7.5-325MG [Monmouth 7.5] 1 - 2 each PO Q6HR PRN #40 tab PRN Reason: Pain traMADol HCl [Ultram] 50 mg PO Q6H PRN #30 tab PRN Reason: Pain No Action Omeprazole [PriLOSEC] 20 mg PO DAILY Metoprolol Tartrate [Lopressor] 100 mg PO BID Cholecalciferol [Vitamin D3] 1,000 unit PO DAILY Multivitamins, Thera [Multivitamin (formulary)] 1 tab PO DAILY Dicyclomine [Bentyl] 10 mg PO TID PRN PRN Reason: IBS SX Garlic 1,000 mg PO DAILY Terbinafine [LamISIL] 250 mg PO DAILY Phentermine HCl [Adipex-P] 37.5 mg PO QAM Sasabe-3 Fatty Acids/Fish Oil [Fish Oil 1,000 mg Softgel] 1 cap PO BID Magnesium Oxide [Mag-Ox] 500 mg PO DAILY Glucosam/Irwin-Msm1/C/Olman/Bosw [Glucosamine-Chondroitin Tablet] 1 tab PO BID Optivite Eye Supplement 1 tab PO DAILY Acetaminophen Tab [Tylenol Tab] 1,000 mg PO Q6HR Discharge Medication List Metoprolol Tartrate [Lopressor] 100 mg PO BID 02/01/15 [History] Omeprazole [PriLOSEC] 20 mg PO DAILY 12/22/15 [History] Cholecalciferol [Vitamin D3] 1,000 unit PO DAILY 04/26/17 [History] Dicyclomine [Bentyl] 10 mg PO TID PRN 04/26/17 [History] Garlic 1,000 mg PO DAILY 04/26/17 [History] Multivitamins, Thera [Multivitamin (formulary)] 1 tab PO DAILY 04/26/17 [History ] Magnesium Oxide [Mag-Ox] 500 mg PO DAILY 04/30/17 [History] Sasabe-3 Fatty Acids/Fish Oil [Fish Oil 1,000 mg Softgel] 1 cap PO BID 04/30/17 [ History] Phentermine HCl [Adipex-P] 37.5 mg PO QAM 04/30/17 [History] Terbinafine [LamISIL] 250 mg PO DAILY 04/30/17 [History] Glucosam/Irwin-Msm1/C/Olman/Bosw [Glucosamine-Chondroitin Tablet] 1 tab PO BID [History] Optivite Eye Supplement 1 tab PO DAILY 06/10/17 [History] Acetaminophen Tab [Tylenol Tab] 1,000 mg PO Q6HR 06/17/17 [History] Aspirin 325 mg PO BID #60 tab 06/18/17 [Rx] Docusate [Colace] 100 mg PO DAILY #30 capsule 06/18/17 [Rx] HYDROcodone/APAP 7.5-325MG [Monmouth 7.5] 1 - 2 each PO Q6HR PRN #40 tab 06/18/17 [ Rx] traMADol HCl [Ultram] 50 mg PO Q6H PRN #30 tab 06/18/17 [Rx] Follow up Appointment(s)/Referral(s): Kemal Agustin DO [Doctor of Osteopathic Medicine] - 07/03/17 2:10 pm Activity/Diet/Wound Care/Special Instructions: Orthopedic Discharge Instructions: 1. Wound care and infection precautions, keep incision dry and covered while showering, no lotions, creams, moisturizers. No soaking, pools, hot tubs. Do not scrub over incision. 2. Weight-bear as tolerated with walker / cane until follow-up. 3. Ice and elevate when necessary. Do not exceed 20 minutes per hour with ice pack. 4. Utilize compression sleeve until seen at first follow up appointment. 5. Visiting nursing care. 6. Home physical therapy including home CPM. 7. Pain meds and anticoagulants per prescription. 8. Pain medication has potential to cause constipation. Increase oral fluid and fiber intake. Contact primary care provider if you have not had a bowel movement within 48 hours after discharge. 9. No anti-inflammatory medication until discussed at first post operative visit, this including Motrin, Aleve, Mobic, Diclofenac. 10. Follow up in office at 2 weeks postop with Neri Crespo PA-C 11. Follow up with your primary care doctor 7-10 days after discharge. 12. Contact [facility] with any questions, . Discharge Disposition: HOME WITH HOME HEALTH SERVICES
== END 2017-06-18 13:10 | disposition home health service (06) | DRG 470 ==
LOC: 2ORMAIN 11:11 → 3SUR 15:10
PROVIDERS: ADMIT Orthopaedic Surgery; ATTEND Orthopaedic Surgery
PROC: 0SRD0J9 Replacement of Left Knee Joint with Synthetic Substitute, Cemented, Open Approach (ICD-10-PCS; principal; 2017-06-17 13:00)
DX: M17.12 Unilateral primary osteoarthritis, left knee (principal); I10 Essential (primary) hypertension; K21.9 Gastro-esophageal reflux disease without esophagitis; H91.90 Unspecified hearing loss, unspecified ear; B35.1 Tinea unguium; I83.90 Asymptomatic varicose veins of unspecified lower extremity; E66.9 Obesity, unspecified; Z68.32 Body mass index [BMI] 32.0-32.9, adult; Z71.3 Dietary counseling and surveillance; K58.9 Irritable bowel syndrome, unspecified; Z79.1 Long term (current) use of non-steroidal anti-inflammatories (NSAID); Z79.82 Long term (current) use of aspirin; Z79.899 Other long term (current) drug therapy; Z96.642 Presence of left artificial hip joint; Z87.891 Personal history of nicotine dependence; Z98.51 Tubal ligation status; Z88.5 Allergy status to narcotic agent; Z88.2 Allergy status to sulfonamides; Z83.2 Family history of diseases of the blood and blood-forming organs and certain disorders involving the immune mechanism; Z80.3 Family history of malignant neoplasm of breast; Z80.0 Family history of malignant neoplasm of digestive organs
CPT/HCPCS: 80048; 84132; 85025; 88300

== ENCOUNTER → 2017-12-09 | Outpatient (CLI) | payer BC, MEDICARE ==
[2017-12-09 16:56] LABS: Basophils # (A) 0.1 k/uL (0-0.2); Basophils % (A) 1 %; Eosinophils # (A) 0.1 k/uL (0-0.7); Eosinophils % (A) 2 %; HGB 14.2 gm/dL (11.4-16.0); Lymphocytes # (A) 2.8 k/uL (1.0-4.8); Lymphocytes % (A) 40 %; MCHC 33.1 g/dL (31.0-37.0); MCV 87.7 fL (80.0-100.0); Mean Platelet Volume 6.9; Monocytes # (A) 0.6 k/uL (0-1.0); Monocytes % (A) 9 %; Neutrophils # (A) 3.1 k/uL (1.3-7.7); Neutrophils % (A) 45 %; Platelet Count 217 k/uL (150-450); RBC 4.91 m/uL (3.80-5.40); RDW 13.3 % (11.5-15.5); WBC 6.8 k/uL (3.8-10.6)
[2017-12-09 17:01] LABS: Potassium 5.4 mmol/L (3.5-5.1)
[2017-12-09 17:03] LABS: INR 1.1 (<1.2); Partial Thromboplastin Time 23.2 sec (22.0-30.0); Prothrombin Time 10.4 sec (9.0-12.0)
== END | disposition home or self-care (01) ==
LOC: LABPAT 16:09
PROVIDERS: ATTEND Orthopaedic Surgery
DX: Z01.812 Encounter for preprocedural laboratory examination (principal); M17.11 Unilateral primary osteoarthritis, right knee; Z79.01 Long term (current) use of anticoagulants
CPT/HCPCS: 36415; 80051; 85025; 85610; 85730; 87070

== ENCOUNTER → 2019-02-20 | Outpatient (CLI) | payer MEDICARE ==
[2019-02-20 10:09] LABS: Basophils # (A) 0.1 k/uL (0-0.2); Basophils % (A) 1 %; Eosinophils # (A) 0.1 k/uL (0-0.7); Eosinophils % (A) 2 %; HCT 45.1 % (34.0-46.0); HGB 14.9 gm/dL (11.4-16.0); Lymphocytes # (A) 2.3 k/uL (1.0-4.8); Lymphocytes % (A) 37 %; MCH 29.3 pg (25.0-35.0); MCV 88.7 fL (80.0-100.0); Mean Platelet Volume 7.8; Monocytes # (A) 0.4 k/uL (0-1.0); Monocytes % (A) 7 %; Neutrophils % (A) 50 %; Platelet Count 174 k/uL (150-450); RBC 5.09 m/uL (3.80-5.40); RDW 12.6 % (11.5-15.5)
== END | disposition home or self-care (01) ==
LOC: LABPAT 09:38
PROVIDERS: ATTEND Orthopaedic Surgery
DX: Z01.812 Encounter for preprocedural laboratory examination (principal); G56.02 Carpal tunnel syndrome, left upper limb; G56.01 Carpal tunnel syndrome, right upper limb
CPT/HCPCS: 80051; 85025

== ENCOUNTER 2019-02-25 10:00 | Day surgery (SDC) | payer MEDICARE ==
[2019-02-20 15:42] VITALS: BMI 36.4
--- NOTE | 2019-02-24 20:16 | HP ---
HISTORY AND PHYSICAL DATE OF SURGERY: 02/25/2019 Ayana Couch is a 68-year-old patient seen with symptomatic left carpal tunnel syndrome. We discussed options for treatment. She elected to proceed with decompression of left median nerve. Consent was obtained. PAST MEDICAL HISTORY: Hypertension. PAST SURGICAL HISTORY: Knee arthroscopy, total hip arthroplasty. DAILY MEDICATIONS: 1. Omeprazole. 2. Metoprolol. 3. Aspirin. ALLERGIES: NONE. SOCIAL HISTORY: She denies tobacco use. PHYSICAL EVALUATION OF LEFT HAND: Positive carpal compression and carpal Tinel's causing numbness and tingling throughout the median nerve distribution. There is some decreased sensation throughout the median nerve distribution. No tenderness along the A1 jacoby sites. Good radial pulse. Good perfusion distally. RADIOGRAPHS: Radiographs of the left hand and wrist reveal some osteoarthritis of the carpometacarpal joint. An EMG of the upper extremities revealed severe carpal tunnel syndrome. IMPRESSION: 1. Left carpal tunnel syndrome. 2. Hypertension. PLAN: Decompression of left median nerve. MMODL / IJN: [id number] /
[~2019-02-25 10:00] MED LIST changes: -ACETAMINOPHEN TAB 500 MG TAB PO ONE; +LACTATED RINGERS 1,000 ML IV SCH; -MELOXICAM 7.5 MG TAB PO ONE; +ONDANSETRON 4 MG/2 ML VIAL IVP ONE; -ONDANSETRON ODT 4 MG TAB PO ONE; -TRANEXAMIC ACID 1,000 MG in SODIUM CHLORIDE 0.9% 100 ML IVPB ONE; -ceFAZolin IN SWFI 2 GM/20 ML SYRINGE IVP ONE
[2019-02-25] MEDS ORDERED: LACTATED RINGERS 1,000 ML IV ONE ×2 (10:30→11:52)
[2019-02-25 10:57] LABS: Glucose,Whole Blood 98 mg/dL (75-99)
[2019-02-25] MEDS ORDERED: PROPOFOL 10 MG/ML 20 ML VIAL IV ONE (11:52)
[2019-02-25] MEDS ORDERED: MIDAZOLAM 2 MG/2 ML VIAL ONE (11:52)
[2019-02-25] MEDS ORDERED: fentaNYL (PF) 50 MCG/ML 2 ML AMP ONE (11:52)
[2019-02-25] MEDS ORDERED: BUPIVACAINE (PF) 0.25% 30 ML VIAL SQ ONE ×3 (12:00)
--- NOTE | 2019-02-25 12:19 | P.OP ---
Date of Procedure: 02/25/19 Preoperative Diagnosis: Left carpal tunnel syndrome Postoperative Diagnosis: Same Procedure(s) Performed: Decompression left median nerve Anesthesia: MAC, local Surgeon: Kemal Agustin Estimated Blood Loss (ml): 0 Pathology: none sent Condition: stable Disposition: PACU Indications for Procedure: 68-year-old patient seen with symptomatic left carpal tunnel syndrome. After options were discussed, she elected to proceed with decompression left median nerve. Operative Findings: see description of procedure Description of Procedure: The patient was taken to the operative suite. The patient underwent IV sedation by the department of anesthesia. A well-padded tourniquet placed proximal left upper extremity. The left upper extremity was prepped and draped in the normal sterile orthopedic fashion. The proposed incision site was infiltrated with 10 mL quarter percent plain Marcaine. Once sufficient local analgesia was noted the extremity was elevated and tourniquet insufflated to 250. I now made an incision beginning at the distal volar wrist crease extending distally approximately 3 cm in line with the fourth metacarpal sharply through skin. I dissected down to to the palmar fascia. I then incised the palmar fascia. I identified the transverse carpal ligament. I incised transcarpal ligament. I completed the release of the transverse carpal ligament proximally and distally with blunt Metzenbaums. There was good complete release of the transverse carpal ligament and good decompression of the nerve. There was good hemostasis. The wound was irrigated. The skin margins were approximated nylon suture. Sterile dressings were applied. The tourniquet was released with immediate capillary refill noted. The patient then transferred to recovery stable condition.
[2019-02-25 12:31] VITALS: RESP 16
[2019-02-25 13:07] VITALS: BP 153/85; PULSE 83
== END 2019-02-25 13:17 | disposition home or self-care (01) ==
LOC: OR 10:00
PROVIDERS: ATTEND Orthopaedic Surgery
DX: G56.02 Carpal tunnel syndrome, left upper limb (principal); I10 Essential (primary) hypertension; Z96.649 Presence of unspecified artificial hip joint; K21.9 Gastro-esophageal reflux disease without esophagitis; Z96.642 Presence of left artificial hip joint; Z96.653 Presence of artificial knee joint, bilateral; Z98.51 Tubal ligation status; Z79.1 Long term (current) use of non-steroidal anti-inflammatories (NSAID); Z79.82 Long term (current) use of aspirin; Z79.899 Other long term (current) drug therapy; Z88.5 Allergy status to narcotic agent; Z88.2 Allergy status to sulfonamides
CPT/HCPCS: 64721; J2250; J0690; J3010; J2704

== ENCOUNTER 2019-03-19 13:30 | Day surgery (SDC) | payer MEDICARE ==
[2019-03-17 12:44] VITALS: BMI 36.9
--- NOTE | 2019-03-18 14:31 | HP ---
HISTORY AND PHYSICAL REASON FOR ADMISSION: Surgery 03/19/2019. HISTORY OF PRESENT ILLNESS: Ayana Couch is a 68-year-old patient seen with symptomatic right carpal tunnel syndrome. We discussed options for treatment. She elected to proceed with decompression. Consent was obtained. PAST MEDICAL HISTORY: Hypertension. PAST SURGICAL HISTORY: Left knee arthroscopy, tonsillectomy, left total hip arthroplasty. DAILY MEDICATIONS: 1. Naprosyn. 2. Aspirin. 3. Metoprolol. 4. Omeprazole. ALLERGIES: None. SOCIAL HISTORY: She denies tobacco use. PHYSICAL EXAMINATION: Evaluation of the right hand: She has a positive carpal compression, positive carpal Tinel's, both causing numbness and tingling through the median nerve distribution. There is some decreased sensation throughout the median nerve distribution. She has a good radial pulse. She is nontender along the A1 jacoby sites. RADIOGRAPHS: Radiographs of the right wrist and hand reveal some osteoarthritic changes. EMG of the upper extremities reveals severe bilateral carpal tunnel syndrome. IMPRESSION: 1. Right carpal tunnel syndrome. 2. Hypertension. PLAN: Decompression of right median nerve. Surgery 03/19/2019. MMODL / IJN: [id number] /
[~2019-03-19 13:30] MED LIST changes: +DEXAMETHASONE SOD PHOSPHATE 10 MG/ML 1 ML VIAL IV ONE; -ONDANSETRON 4 MG/2 ML VIAL IVP ONE
[2019-03-19 14:03] VITALS: RESP 16; TEMP 97.5
[2019-03-19] MEDS ORDERED: ONDANSETRON 4 MG/2 ML VIAL IVP ONE (14:12)
[2019-03-19] MEDS ORDERED: PROPOFOL 10 MG/ML 20 ML VIAL IV ONE (16:27)
[2019-03-19] MEDS ORDERED: MIDAZOLAM 2 MG/2 ML VIAL ONE (16:27)
[2019-03-19] MEDS ORDERED: fentaNYL (PF) 50 MCG/ML 2 ML AMP ONE (16:27)
[2019-03-19] MEDS ORDERED: BUPIVACAINE (PF) 0.25% 30 ML VIAL SQ ONE ×2 (16:41)
--- NOTE | 2019-03-19 16:59 | P.OP ---
Date of Procedure: 03/19/19 Preoperative Diagnosis: Right carpal tunnel syndrome Postoperative Diagnosis: Right carpal tunnel syndrome Procedure(s) Performed: Decompression left median nerve Anesthesia: MAC, local Surgeon: Kemal Agustin Estimated Blood Loss (ml): 1 Pathology: none sent Condition: stable Disposition: PACU Indications for Procedure: 68-year-old patient seen with symptomatic right carpal tunnel syndrome. After having options regarding treatment discussed, she elected to proceed with d ecompression right median nerve. Operative Findings: see description of procedure Description of Procedure: The patient was taken to the operative suite. The patient received preoperative IV antibiotics. The patient underwent IV sedation by the department of anesthesia. A well-padded tourniquet placed proximal right upper extremity. Right upper extremity prepped and draped in the normal sterile orthopedic fashion. The proposed incision site was infiltrated with approximately 10 mL quarter percent plain Marcaine. When sufficient local analgesia was noted the extremity was elevated and tourniquet insufflated to 250. I now made an incision beginning at the distal volar wrist crease extending this approximately 3 cm in line with the fourth metacarpal sharply through skin. Dissection was taken down through the palmar fascia to the transverse carpal ligament. I now made a small incision through the transverse carpal ligament. I now completely released the transverse carpal ligament proximally and distally with blunt Metzenbaums. There was good complete release of the transverse carpal ligament and good decompression of the nerve. There was good hemostasis. The skin margins were approximated nylon suture. We applied sterile dressings and sterile web roll. The tourniquet was released with immediate capillary refill noted. Coband was now applied. The patient was now awakened, transferred to recovery in stable condition.
[2019-03-19 17:48] VITALS: BP 128/76; PULSE 76
== END 2019-03-19 18:01 | disposition home or self-care (01) ==
LOC: OR 13:30
PROVIDERS: ATTEND Orthopaedic Surgery
DX: G56.01 Carpal tunnel syndrome, right upper limb (principal); I10 Essential (primary) hypertension; K21.9 Gastro-esophageal reflux disease without esophagitis; Z79.82 Long term (current) use of aspirin; Z79.899 Other long term (current) drug therapy; Z79.1 Long term (current) use of non-steroidal anti-inflammatories (NSAID); Z88.5 Allergy status to narcotic agent; Z88.2 Allergy status to sulfonamides; Z90.89 Acquired absence of other organs; Z96.642 Presence of left artificial hip joint; Z98.890 Other specified postprocedural states
CPT/HCPCS: 64721; J2250; J1100; J0690; J2405; J3010; J2704

== ENCOUNTER → 2021-07-14 | Day surgery (SDC) | payer MEDICARE ==
[2021-07-13 10:20] VITALS: BMI 35.4
[~2021-07-14] MED LIST changes: -DEXAMETHASONE SOD PHOSPHATE 10 MG/ML 1 ML VIAL IV ONE; -LIDOCAINE 1% 20 ML VIAL (10MG/ML) FOR IV START INTRADERMA PRN; +LIDOCAINE 2% INJ 20 MG/ML (2 ML VIAL) ONE; +PROPOFOL 10 MG/ML 20 ML VIAL IV ONE; -fentaNYL (PF) 50 MCG/ML 2 ML AMP IV PRN
[2021-07-14 10:55] VITALS: RESP 18; TEMP 97.9
--- NOTE | 2021-07-14 12:05 | P.PCN ---
Date of Procedure: 07/14/21 Procedure(s) Performed: BRIEF HISTORY: Patient is a 71-year-old pleasant white female scheduled for an elective colonoscopy as a part of evaluation of chronic diarrhea for the last 6 months duration. She was having bowel movements daily from 5-6 a day which are loose to watery in consistency but for the last 6 weeks symptoms are gradually improving. Denies any rectal bleeding. PROCEDURE PERFORMED: Colonoscopy random biopsy. PREOPERATIVE DIAGNOSIS: Chronic diarrhea of five-month's. IV sedation per Anesthesia. PROCEDURE: After informed consent was obtained, the patient, was brought into the endoscopy unit. IV sedation was administered by Anesthesia under continuous monitoring. Digital rectal examination was normal. Initially the Olympus CF-160 flexible video colonoscope was then inserted in the rectum, gradually advanced into the cecum without any difficulty. Careful examination was performed as the scope was gradually being withdrawn. Ileocecal valve and the appendiceal orifice were visualized and appeared normal. Prep was excellent. Mucosa of the cecum, ascending colon, transverse colon, descending colon, sigmoid colon, and rectum appeared normal. Random biopsies were done from ascending and descending colon to rule out microscopic/collagenous colitis. Scattered sigmoid diverticulosis seen. Retroflexion was performed in the rectum and no lesions were seen. The patient tolerated the procedure well. IMPRESSION: Normal-appearing colon from rectum to cecum no evidence of colitis or colorectal neoplasia . Scattered sigmoid diverticulosis. RECOMMENDATIONS: Findings of this examination were discussed with the patient family. She was advised to follow with the biopsy results. Recommend repeat screening colonoscopy in 10 years..
[2021-07-14 12:44] VITALS: BP 136/87; PULSE 71
== END ==
LOC: ORWHC2ENDO 10:13
PROVIDERS: ATTEND Internal Medicine Gastroenterology
DX: K57.30 Diverticulosis of large intestine without perforation or abscess without bleeding (principal); K52.9 Noninfective gastroenteritis and colitis, unspecified; K21.9 Gastro-esophageal reflux disease without esophagitis; I10 Essential (primary) hypertension; Z96.653 Presence of artificial knee joint, bilateral; Z98.890 Other specified postprocedural states; Z96.649 Presence of unspecified artificial hip joint; Z79.82 Long term (current) use of aspirin; Z79.899 Other long term (current) drug therapy; Z88.5 Allergy status to narcotic agent; Z88.2 Allergy status to sulfonamides
CPT/HCPCS: 88305; 45380; J2704; J2001

== ENCOUNTER → 2021-07-26 | Outpatient (CLI) | payer MEDICARE | END | disposition home or self-care (01) | LOC: LABPAT 14:18 | PROVIDERS: ATTEND Orthopaedic Surgery | DX: Z01.812 Encounter for preprocedural laboratory examination (principal); Z22.322 Carrier or suspected carrier of Methicillin resistant Staphylococcus aureus; M16.11 Unilateral primary osteoarthritis, right hip | CPT/HCPCS: 87070 ==

== ENCOUNTER → 2021-09-22 | Outpatient (CLI) | payer MEDICARE ==
[2021-09-22 18:19] LABS: Basophils # (A) 0.07 X 10*3/uL (0.00-0.10); Eosinophils # (A) 0.13 X 10*3/uL (0.04-0.35); Eosinophils % (A) 1.9 %; HCT 44.4 % (37.2-46.3); HGB 14.5 g/dL (12.0-15.0); Immature Grans, Automated 0.3 %; Lymphocytes # (A) 2.83 X 10*3/uL (0.90-5.00); Lymphocytes % (A) 42.2 %; MCH 28.5 pg (27.0-32.0); MCHC 32.7 g/dL (32.0-37.0); MCV 87.2 fL (80.0-97.0); NRBC Per 100 WBC 0 /100 WBCS (0.0-0.0); Neutrophils # (A) 3.05 X 10*3/uL (1.80-7.70); Neutrophils % (A) 45.6 %; Platelet Count 214 X 10*3/uL (140-440); RBC 5.09 X 10*6/uL (4.10-5.20); RDW 13.1 % (11.5-14.5)
[2021-09-22 18:25] LABS: African American GFR (CKD) 75.6 (60.0-200.0); Anion Gap 11.7 mmol/L (10.00-18.00); BUN/Creat Ratio 20.56 Ratio (12.00-20.00); Blood Urea Nitrogen 18.5 mg/dL (9.0-27.0); Calcium 9.8 mg/dL (8.7-10.3); Carbon Dioxide 25.3 mmol/L (20.0-27.5); Non-African American GFR(CKD) 65.2 (60.0-200.0); Potassium 4.6 mmol/L (3.5-5.5)
[2021-09-22 18:46] LABS: INR 0.99 (0.90-1.11); Prothrombin Time 11.2 sec (9.9-11.9)
== END | disposition home or self-care (01) ==
LOC: LABPAT 11:34
PROVIDERS: ATTEND Orthopaedic Surgery
DX: Z01.812 Encounter for preprocedural laboratory examination (principal); M16.11 Unilateral primary osteoarthritis, right hip; Z22.322 Carrier or suspected carrier of Methicillin resistant Staphylococcus aureus
CPT/HCPCS: 80048; 85025; 85610; 87070

== ENCOUNTER → 2022-01-23 | Outpatient (CLI) | payer MEDICARE ==
[2022-01-23 12:46] VITALS: BP 125/85; PULSE 81; RESP 16; TEMP 98.9
--- NOTE | 2022-01-23 13:31 | P.HPOB ---
History of Present Illness H&P Date: 01/23/22 Chief Complaint: The patient is here for her routine gynecologic exam and ma mmogram. This is a 71-year-old with an LMP of 2001. The patient is without gynecologic complaints and denies any postmenopausal bleeding. Review of Systems Weight has been stable. She denies respiratory or cardiac problems. GI: Occasional IBS symptoms. Past Medical History Past Medical History: GERD/Reflux, Hypertension, Osteoarthritis (OA) Additional Past Medical History / Comment(s): IBS. VARICOSE VEINS. MINOR EDEMA ANKLES OCC. HX TACHYCARDIA. PAST [employer]OR [employer] HISTORY: She has no history of STDs. History of Any Multi-Drug Resistant Organisms: None Reported Past Surgical History: Joint Replacement, Orthopedic Surgery, Tonsillectomy, Tubal Ligation Additional Past Surgical History / Comment(s): LT KNEE SCOPE. NASAL SURGERY; LATER SINUS SURGERY. Bilateral knee replacement. Bilateral HIP REPLACEMENTS. COLONOSCOPY 2021. Past Anesthesia/Blood Transfusion Reactions: No Reported Reaction Past Psychological History: No Psychological Hx Reported Smoking Status: Former smoker Past Alcohol Use History: Rare (0-1 per month) Additional Past Alcohol Use History / Comment(s): STARTED SMOKING AT AGE 22 QUIT AT AGE 32 SMOKED 3/4PPD Past Drug Use History: None Reported - Past Family History Mother Family Medical History: No Reported History Additional Family Medical History / Comment(s): MOTHERS SIBLINGS HX CANCER Father Family Medical History: Deep Vein Thrombosis (DVT) Additional Family Medical History / Comment(s): . Medications and Allergies Home Medications Medication Instructions Recorded Confirmed Type Metoprolol Tartrate [Lopressor] 100 mg PO QAM 02/01/15 01/23/22 History Omeprazole [PriLOSEC] 20 mg PO QAM 02/01/15 01/23/22 History Cholecalciferol [Vitamin D3 (25 1,000 unit PO DAILY 04/26/17 01/23/22 History Mcg = 1000 Iu)] Garlic 1 dose PO DAILY 04/26/17 01/23/22 History Callender-3 Fatty Acids/Fish Oil [Fish 1 cap PO DAILY 04/30/17 01/23/22 History Oil 1,000 mg Softgel] Vit C/E/Zn/Coppr/Lutein/Zeaxan 1 each PO DAILY 12/16/17 01/23/22 History [Preservision Areds 2 Softgel] Aspirin [Adult Low Dose Aspirin EC] 81 mg PO BID 02/20/19 01/23/22 History Atorvastatin [Lipitor] 20 mg PO DAILY 07/13/21 01/23/22 History Metoprolol Tartrate [Lopressor] 50 mg PO HS 07/13/21 01/23/22 History Multivit with Calcium,Iron,Min 1 each PO DAILY 07/13/21 01/23/22 History [Women's Multivitamin] Melatonin [Melatonin Dissolving 10 mg PO HS 09/29/21 01/23/22 History Tablet] Naproxen [Naprosyn] 500 mg PO DAILY 01/23/22 01/23/22 History Phentermine HCl [Adipex-P] 37.5 mg PO DAILY 01/23/22 01/23/22 History Allergies Allergy/AdvReac Type Severity Reaction Status Date / Time morphine AdvReac Severe Nausea, Verified 01/23/22 12:38 HEADACHE sulfamethoxazole AdvReac HEADACHE Verified 01/23/22 12:38 [From Bactrim] AND NAUSEA trimethoprim [From Bactrim] AdvReac HEADACHE Verified 01/23/22 12:38 AND NAUSEA Exam Vital Signs Temp Pulse Resp BP Pulse Ox 01/23/22 12:43 98.9 F 81 16 125/85 99 Intake and Output 01/22/22 01/23/22 01/23/22 22:59 06:59 14:59 Other: Weight 110.677 kg Height 5 feet 9 inches, weight 244 pounds, BMI 36.0. This is a well-developed well-nourished white female who is alert and oriented times 3 in no acute distress. HEENT: Within normal limits. NECK: Supple without mass or thyromegaly. CHEST AND LUNGS: Clear to auscultation. HEART: Regular rate and rhythm. BREASTS: Are without mass or discharge. AXILLARY EXAM: Negative for adenopathy. There is a small firm skin scar in the axilla. This has a benign appearance and measures approximately 9 mm. This appears to be an area that may have had a old boil in the past. BACK: Negative for CVA tenderness. ABDOMEN: Soft, nontender, without palpable masses. PELVIC EXAM: Normal external genitalia with mild atrophy. Cervix and vagina appear normal with mild atrophy. There is no unusual discharge. There is no evidence of prolapse. The uterus is midposition, nongravid size and nontender. There are no palpable adnexal masses or tenderness. RECTAL EXAM: Rectovaginal exam is negative for mass or tenderness and is negative for occult blood. EXTREMITIES: Nontender. IMPRESSION: 1. 71-year-old menopausal female with normal gynecologic exam. PLAN: 1. Pap smears have been discontinued. 2. Self breast awareness was discussed with the patient. We have also discussed symptoms associated with inflammatory breast cancer. 3. Screening mammogram will be done today. 4. Osteoporosis prevention was discussed. I have stressed the importance of adequate calcium, vitamin D and regular exercise. Recommended amounts of calcium and vitamin D were also discussed. Baseline bone density test will be done today. 5. She has completed her Covid vaccination series and has received a booster. 6. She was advised to return in one year for her annual well woman exam.
--- NOTE | 2022-01-23 14:26 | BD ---
EXAMINATION TYPE: Axial Bone Density DATE OF EXAM: 01/23/2022 COMPARISON: BASELINE CLINICAL HISTORY: 71 years year old Female. ICD-10 CODE: Z78.0 POST MENOPAUSAL Height: 66" Weight: 240.3 FRAX RISK QUESTIONS: Alcohol (3 or more units per day): NO Family History (Parent hip fracture): NO Glucocorticoids (More than 3mos): NO (Ex: prednisone, prednisolone, methylprednisolone, dexamethasone, and hydrocortisone). History of Fracture in Adulthood: NO Secondary Osteoporosis: 1. Type 1 Diabetes: NO 2. Hyperthyroidism: NO 3. Menopause before 45: NO 4. Malnutrition: NO 5. Chronic liver disease: NO Rheumatoid Arthritis: NO Current Tobacco Use: NO RISK FACTORS HISTORY OF: Hip Fracture (Right/Left): NO Spine Fracture: NO History of Wrist Fracture: NO Surgery to Spine/Hip(right/left)/Wrist (right/left): BILATERAL HIP REPLACEMENTS When: LEFT HIP REPLACEMENT 2011, RIGHT HIP REPLACEMENT 2021 Family History of Osteoporosis: NO Active: YES Diet low in dairy products/other sources of calcium: NO Postmenopausal woman: YES Lost more than 2 inches in height since high school: YES Frequent falls: NO Poor Health: GOOD Hyperparathyroidism: NO Adrenal Insufficiency: NO MEDICATIONS: Additional Medications: BLOOD PRESSURE MEDS (METRO.), NAPROXEN, OMEPRAZOLE, ASPIRIN, CHOLESTEROL MEDS , MULTI VITAMIN, VIT D3, GARLIC, FISH OIL, MELATONIN Additional History: EXAM MEASUREMENTS: Bone mineral densitometry was performed using the Freedom2 System. Bone mineral density as measured about the Lumbar spine is: ----- L1-L4(G/cm2): 1.240 T Score Values are as follows: ----- L1: 0.6 ----- L2: -0.5 ----- L3: 0.5 ----- L4: 1.0 ----- L1-L4: 0.5 Bone mineral density about the L Wrist (g/cm2): 0.497 T Score values are as follows: -----Dist. R+U: -2.7 -----Prox. R+U: -1.9 -----Radius total: -2.9 IMPRESSION: Osteoporosis (T Score less than -2.5). There is increased fracture risk and therapy is usually indicated based on age. Re-Screen 1-2 years. NOTE: T-SCORE=SD OF THE YOUNG ADULT MEAN.
== END ==
LOC: WWCWWP 12:24
PROVIDERS: ATTEND Obstetrics & Gynecology
DX: Z01.419 Encounter for gynecological examination (general) (routine) without abnormal findings (principal); Z12.31 Encounter for screening mammogram for malignant neoplasm of breast; Z78.0 Asymptomatic menopausal state; M81.0 Age-related osteoporosis without current pathological fracture; Z88.2 Allergy status to sulfonamides; Z88.5 Allergy status to narcotic agent; Z87.891 Personal history of nicotine dependence
CPT/HCPCS: 77067; 77080

== ENCOUNTER → 2022-02-01 | Outpatient (CLI) | payer MEDICARE ==
--- NOTE | 2022-02-01 14:18 | USB ---
Reason for Exam: Additional evaluation requested from abnormal screening. Patient History: Menarche at age 14. First Full-Term at age 31. Postmenopausal. Maternal aunt had breast cancer. Risk Values: Marisela 5 year model risk: 1.9%. NCI Lifetime model risk: 5.9%. Prior Study Comparison: 04/30/2017 Bilateral Screening Mammogram, [facility]. 08/13/2018 Bilateral Screening Mammogram, [facility]. 01/23/2022 Bilateral MG screening mammo w CAD, [facility]. Findings: The upper inner quadrant of the left breast, the axilla of the left breast and the retroareolar of the left breast were scanned. Targeted ultrasound upper quadrant left breast 9:00 to 12:00 including the subareolar region and axilla. There is a mildly lobulated anechoic lesion measuring 4 x 4 x 3 mm. This appears to be a cyst but no clear posterior transmission is identified. [place] follow-up recommended lesion shows only slight increase in size and may have been present back to 2017. Overall Assessment: Probably benign, BI-RAD 3 Management: Diagnostic Mammogram of the left breast in 3 months. Diagnostic Breast Ultrasound of the left breast in 3 months. 1. Patient should continue monthly self breast exams. 2. A clinical breast exam by your physician is recommended on an annual basis. 3. This exam should not preclude additional follow-up of suspicious palpable abnormalities. Results were given to the patient verbally at the time of exam. Electronically signed and approved by: Lew Booker M.D. Radiologist
== END | disposition home or self-care (01) ==
LOC: RADMAMWWP 13:07
PROVIDERS: ATTEND Obstetrics & Gynecology
DX: R92.8 Other abnormal and inconclusive findings on diagnostic imaging of breast (principal); Z78.0 Asymptomatic menopausal state; Z80.3 Family history of malignant neoplasm of breast
CPT/HCPCS: 77065

== ENCOUNTER → 2022-05-28 | Outpatient (CLI) | payer MEDICARE ==
--- NOTE | 2022-05-28 07:46 | MM ---
Reason for Exam: Additional evaluation requested from abnormal screening. Last screening mammogram was performed 4 month(s) ago. Patient History: Menarche at age 14. First Full-Term at age 31. Postmenopausal. Maternal aunt had breast cancer. Risk Values: Marisela 5 year model risk: 1.9%. NCI Lifetime model risk: 5.9%. Prior Study Comparison: 08/13/2018 Bilateral Screening Mammogram, [facility]. 01/23/2022 Bilateral MG screening mammo w CAD, [facility]. 02/01/2022 Left MG work up mamm w CAD LT, [facility]. Tissue Density: Left: The breast tissue is heterogeneously dense. This may lower the sensitivity of mammography. Findings: Analyzed By CAD. Nodular density inner upper left breast persists. No significant change is appreciated. Ultrasound is advised. Overall Assessment: Incomplete: need additional imaging evaluation, BI-RAD 0 Management: Diagnostic Breast Ultrasound of the left breast. A clinical breast exam by your physician is recommended on an annual basis and results should be correlated with mammographic findings. This exam should not preclude additional follow-up of suspicious palpable abnormalities. Results were given to the patient verbally at the time of exam. Electronically signed and approved by: Himanshu Holguin M.D. Radiologis
--- NOTE | 2022-05-28 08:02 | USB ---
Reason for Exam: Follow-up at short interval from prior study. Patient History: Menarche at age 14. First Full-Term at age 31. Postmenopausal. Maternal aunt had breast cancer. Risk Values: Marisela 5 year model risk: 1.9%. NCI Lifetime model risk: 5.9%. Technique: Method: Targeted. Prior Study Comparison: 08/13/2018 Bilateral Screening Mammogram, [facility]. 01/23/2022 Bilateral MG screening mammo w CAD, [facility]. 02/01/2022 Left US breast workup limited LT, [facility]. 02/01/2022 Left MG work up mamm w CAD LT, [facility]. Findings: The medial section of the breast of the left breast, the axilla of the left breast and the retroareolar of the left breast were scanned. Hypoechoic lesion at the left 10:00 position 6 cm from the nipple is essentially unchanged from compared to prior study measures 4 x 3 mm and is too small to appropriately characterize. 6 month follow-up ultrasound is recommended.. Overall Assessment: Probably benign, BI-RAD 3 Management: Diagnostic Breast Ultrasound of the left breast in 6 months. A clinical breast exam by your physician is recommended on an annual basis and results should be correlated with mammographic findings. This exam should not preclude additional follow-up of suspicious palpable abnormalities. Results were given to the patient verbally at the time of exam. Electronically signed and approved by: Himanshu Holguin M.D. Radiologis
== END | disposition home or self-care (01) ==
LOC: RADMAMWWP 06:54
PROVIDERS: ATTEND Pediatrics
DX: R92.8 Other abnormal and inconclusive findings on diagnostic imaging of breast (principal); Z78.0 Asymptomatic menopausal state; Z80.3 Family history of malignant neoplasm of breast
CPT/HCPCS: 77065; 76642; G0279; 77061

== ENCOUNTER → 2022-11-28 | Outpatient (CLI) | payer MEDICARE ==
--- NOTE | 2022-11-28 09:42 | MM ---
Reason for Exam: Additional evaluation requested from prior study. Last screening mammogram was performed 10 month(s) ago. Patient History: Menarche at age 14. First Full-Term at age 31. Postmenopausal. Patient has history of breast feeding. Maternal aunt had breast cancer. Risk Values: Marisela 5 year model risk: 1.9%. NCI Lifetime model risk: 5.6%. Prior Study Comparison: 01/25/2015 Bilateral Screening Mammogram, [facility]. 02/28/2016 Bilateral Screening Mammogram, [facility]. 04/30/2017 Bilateral Screening Mammogram, [facility]. 08/13/2018 Bilateral Screening Mammogram, [facility]. 01/23/2022 Bilateral MG screening mammo w CAD, [facility]. 02/01/2022 Left MG work up mamm w CAD LT, [facility]. 05/28/2022 Left MG 3D diag mammo w/cad LT, [facility]. Tissue Density: There are scattered fibroglandular densities. Findings: Analyzed By CAD. Benign calcifications are redemonstrated bilaterally. Small nodular density left o'clock position persists. Ultrasound is advised. No new mass is seen. Overall Assessment: Incomplete: need additional imaging evaluation, BI-RAD 0 Management: Diagnostic Breast Ultrasound of the left breast. . Results were given to the patient verbally at the time of exam. Patient should continue monthly self-breast exams. A clinical breast exam by your physician is recommended on an annual basis. This exam should not preclude additional follow-up of suspicious palpable abnormalities. Note on Marisela scores and lifetime risk: 1. A Marisela score greater than 3% is considered moderate risk. If this is the case, consider specialist referral to assess eligibility for a risk reducing agent. 2. If overall lifetime risk for the development of breast cancer is 20% or higher, the patient may qualify for future screening with alternating mammogram and breast MRI. Electronically signed and approved by: Himanshu Holguin M.D. Radiologis
--- NOTE | 2022-11-28 10:00 | USB ---
Reason for Exam: Follow-up at short interval from prior study. Patient History: Menarche at age 14. First Full-Term at age 31. Postmenopausal. Patient has history of breast feeding. Maternal aunt had breast cancer. Risk Values: Marisela 5 year model risk: 1.9%. NCI Lifetime model risk: 5.6%. Technique: Method: Targeted. Prior Study Comparison: 01/23/2022 Bilateral MG screening mammo w CAD, [facility]. 02/01/2022 Left MG work up mamm w CAD LT, [facility]. 05/28/2022 Left MG 3D diag mammo w/cad LT, [facility]. Findings: The upper inner quadrant of the left breast, the axilla of the left breast and the retroareolar of the left breast were scanned. 2 mm cyst at the left 10:00 position 6 cm from the nipple versus 4 mm previously. No solid masses seen.. Overall Assessment: Benign, BI-RAD 2 Management: Screening Mammogram of both breasts in 6 months. A clinical breast exam by your physician is recommended on an annual basis and results should be correlated with mammographic findings. This exam should not preclude additional follow-up of suspicious palpable abnormalities. Results were given to the patient verbally at the time of exam. Electronically signed and approved by: Himanshu Holguin M.D. Radiologis
== END | disposition home or self-care (01) ==
LOC: RADMAMWWP 08:43
PROVIDERS: ATTEND Pediatrics
DX: N60.02 Solitary cyst of left breast (principal); R92.323 Mammographic fibroglandular density, bilateral breasts; Z80.3 Family history of malignant neoplasm of breast; Z78.0 Asymptomatic menopausal state
CPT/HCPCS: 77066; 76642; G0279; 77062

== ENCOUNTER → 2023-07-16 | Outpatient (CLI) | payer MEDICARE ==
[2023-07-16 13:57] VITALS: BP 120/82; PULSE 70; RESP 18; TEMP 98.4
--- NOTE | 2023-07-16 14:55 | P.HPOB ---
History of Present Illness H&P Date: 07/16/23 Chief Complaint: The patient is here for her routine gynecologic exam. This is a 73-year-old with an LMP of 2001. Patient is without gynecologic complaints and denies any postmenopausal bleeding. Her last screening mammogram in January 2022 did require a workup and 3-month diagnostic left mammogram was recommended. She did have a bilateral diagnostic mammogram on 11/28/2022 which was benign. Screening mammogram was recommended. I reviewed the timing of her previous breast imaging studies with Dr. Booker, the radiologist. He states bilateral screening mammogram can be done this November. Review of Systems The patient has lost 17 pounds over the last year and a half. She denies respiratory, cardiac, or G.I. problems. Past Medical History Past Medical History: GERD/Reflux, Hypertension, Osteoarthritis (OA) Additional Past Medical History / Comment(s): IBS. VARICOSE VEINS. MINOR EDEMA ANKLES OCC. HX TACHYCARDIA. 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 History of Any Multi-Drug Resistant Organisms: None Reported Past Surgical History: Joint Replacement, Orthopedic Surgery, Tonsillectomy, Tubal Ligation Additional Past Surgical History / Comment(s): LT KNEE SCOPE. NASAL SURGERY; LATER SINUS SURGERY. Bilateral knee replacement. Bilateral HIP REPLACEMENTS. COLONOSCOPY 2021(next after 8yr). Past Anesthesia/Blood Transfusion Reactions: No Reported Reaction Past Psychological History: No Psychological Hx Reported Smoking Status: Former smoker Past Alcohol Use History: Rare Additional Past Alcohol Use History / Comment(s): STARTED SMOKING AT AGE 22 QUIT AT AGE 32 SMOKED 3/4PPD Past Drug Use History: None Reported - Past Family History Mother Family Medical History: No Reported History Additional Family Medical History / Comment(s): MOTHERS SIBLINGS HX CANCER Father Family Medical History: Deep Vein Thrombosis (DVT) Additional Family Medical History / Comment(s): . Sister(s) Family Medical History: Asthma Medications and Allergies Home Medications Medication Instructions Recorded Confirmed Type Metoprolol Tartrate [Lopressor] 100 mg PO QAM 02/01/15 07/16/23 History Omeprazole [PriLOSEC] 20 mg PO QAM 02/01/15 07/16/23 History Cholecalciferol [Vitamin D3 (25 1,000 unit PO DAILY 04/26/17 07/16/23 History Mcg = 1000 Iu)] Garlic 1 dose PO DAILY 04/26/17 07/16/23 History Osseo-3 Fatty Acids/Fish Oil [Fish 1 cap PO DAILY 04/30/17 07/16/23 History Oil 1,000 mg Softgel] Aspirin [Adult Low Dose Aspirin EC] 81 mg PO BID 02/20/19 07/16/23 History Atorvastatin [Lipitor] 20 mg PO DAILY 07/13/21 07/16/23 History Metoprolol Tartrate [Lopressor] 50 mg PO HS 07/13/21 07/16/23 History Multivit with Calcium,Iron,Min 1 each PO DAILY 07/13/21 07/16/23 History [Women's Multivitamin] Melatonin [Melatonin Dissolving 10 mg PO HS 09/29/21 07/16/23 History Tablet] Naproxen [Naprosyn] 500 mg PO DAILY 01/23/22 07/16/23 History buPROPion [Wellbutrin] 100 mg PO DAILY 07/16/23 07/16/23 History Allergies Allergy/AdvReac Type Severity Reaction Status Date / Time morphine AdvReac Severe Nausea, Verified 07/16/23 13:53 HEADACHE sulfamethoxazole AdvReac HEADACHE Verified 07/16/23 13:53 [From Bactrim] AND NAUSEA trimethoprim [From Bactrim] AdvReac HEADACHE Verified 07/16/23 13:53 AND NAUSEA Exam Vital Signs Temp Pulse Resp BP Pulse Ox 07/16/23 13:55 98.4 F 70 18 120/82 98 Intake and Output 07/15/23 07/16/23 07/16/23 22:59 06:59 14:59 Other: Weight 102.965 kg Height 5 feet 7 inches, weight 227 pounds, BMI 35.6. This is a well-developed well-nourished white female who is alert and oriented times 3 in no acute distress. HEENT: Within normal limits. NECK: Supple without mass or thyromegaly. CHEST AND LUNGS: Clear to auscultation. HEART: Regular rate and rhythm. BREASTS: Are without mass or discharge. AXILLARY EXAM: Negative for adenopathy. BACK: Negative for CVA tenderness. ABDOMEN: Soft, nontender, without palpable masses. PELVIC EXAM: Normal external genitalia mild atrophy. Cervix and vagina appear normal with mild atrophy. There is no unusual discharge. There is no evidence of prolapse. The uterus is midposition, nongravid size and nontender. There are no palpable adnexal masses or tenderness. RECTAL EXAM: Rectovaginal exam is negative for mass or tenderness and is negative for occult blood. EXTREMITIES: Nontender. IMPRESSION: 1. 73-year-old menopausal female with normal gynecologic exam. 2. History of osteoporosis based on left wrist bone density testing. Lumbar spine measurements were within normal limits. Hips could not be used because of her bilateral hip replacement history. PLAN: 1. Pap smears have been discontinued 2. Self breast awareness was discussed with the patient. We have also discussed symptoms associated with inflammatory breast cancer. 3. Screening mammogram will be due in November of this year and the order slip was given to the patient for this. 4. Osteoporosis management was discussed. She is declining medications at this time. I have recommended to repeat the bone density test in 1 year. If there are significant changes, we will again discuss the option of medications. 5. She was advised to return in one year for her annual well woman exam.
== END ==
LOC: WWCWWP 12:54
PROVIDERS: ATTEND Obstetrics & Gynecology
DX: Z12.31 Encounter for screening mammogram for malignant neoplasm of breast (principal); Z78.0 Asymptomatic menopausal state; Z87.39 Personal history of other diseases of the musculoskeletal system and connective tissue; Z96.643 Presence of artificial hip joint, bilateral; Z88.5 Allergy status to narcotic agent; Z88.2 Allergy status to sulfonamides; Z88.1 Allergy status to other antibiotic agents; Z87.891 Personal history of nicotine dependence

== ENCOUNTER → 2024-08-25 | Outpatient (CLI) | payer MEDICARE ==
[2024-08-25 11:30] VITALS: BP 113/70; PULSE 74; RESP 17; TEMP 98.3
--- NOTE | 2024-08-25 11:58 | P.HPOB ---
History of Present Illness H&P Date: 08/25/24 Chief Complaint: The patient is here for her routine gynecologic exam and ma mmogram. This is a 74-year-old G2, P2 with an LMP of 2001. The patient is without gynecologic complaints and denies any postmenopausal bleeding. Review of Systems The patient has gained 13 pounds over the last year. She denies respiratory, cardiac, or G.I. problems. Skin:She noticed brown patch on the left shoulder. She believes part of it may have fallen off. Past Medical History Past Medical History: GERD/Reflux, Hypertension, Osteoarthritis (OA) Additional Past Medical History / Comment(s): IBS. VARICOSE VEINS. MINOR EDEMA ANKLES OCC. HX TACHYCARDIA. 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 History of Any Multi-Drug Resistant Organisms: None Reported Past Surgical History: Joint Replacement, Orthopedic Surgery, Tonsillectomy, Tubal Ligation Additional Past Surgical History / Comment(s): LT KNEE SCOPE. NASAL SURGERY; LATER SINUS SURGERY. Bilateral knee replacement. Bilateral HIP REPLACEMENTS. COLONOSCOPY 2021(next after 8yr). Past Anesthesia/Blood Transfusion Reactions: No Reported Reaction Past Psychological History: No Psychological Hx Reported Smoking Status: Former smoker Past Alcohol Use History: Rare Additional Past Alcohol Use History / Comment(s): STARTED SMOKING AT AGE 22 QUIT AT AGE 32 SMOKED 3/4PPD Past Drug Use History: None Reported Additional History: She is . She typically spends time in [place] most jaimes. - Past Family History Mother Family Medical History: No Reported History Additional Family Medical History / Comment(s): MOTHERS SIBLINGS HX CANCER Sister(s) Family Medical History: Asthma Father Family Medical History: Deep Vein Thrombosis (DVT) Additional Family Medical History / Comment(s): . Medications and Allergies Home Medications Medication Instructions Recorded Confirmed Type Metoprolol Tartrate [Lopressor] 100 mg PO QAM 02/01/15 07/16/23 History Omeprazole [PriLOSEC] 20 mg PO QAM 02/01/15 07/16/23 History Cholecalciferol [Vitamin D3 (25 1,000 unit PO DAILY 04/26/17 07/16/23 History Mcg = 1000 Iu)] Garlic 1 dose PO DAILY 04/26/17 07/16/23 History Dille-3 Fatty Acids/Fish Oil [Fish 1 cap PO DAILY 04/30/17 07/16/23 History Oil 1,000 mg Softgel] Aspirin [Adult Low Dose Aspirin EC] 81 mg PO BID 02/20/19 07/16/23 History Atorvastatin [Lipitor] 20 mg PO DAILY 07/13/21 07/16/23 History Metoprolol Tartrate [Lopressor] 50 mg PO HS 07/13/21 07/16/23 History Multivit with Calcium,Iron,Min 1 each PO DAILY 07/13/21 07/16/23 History [Women's Multivitamin] Melatonin [Melatonin Dissolving 10 mg PO HS 09/29/21 07/16/23 History Tablet] Dicyclomine [Bentyl] 10 mg PO DIRECTED 08/25/24 08/25/24 History Meloxicam 7.5 mg PO DAILY 08/25/24 08/25/24 History Allergies Allergy/AdvReac Type Severity Reaction Status Date / Time morphine AdvReac Severe Nausea, Verified 08/25/24 11:24 HEADACHE sulfamethoxazole AdvReac HEADACHE Verified 08/25/24 11:24 [From Bactrim] AND NAUSEA trimethoprim [From Bactrim] AdvReac HEADACHE Verified 08/25/24 11:24 AND NAUSEA Exam Vital Signs Temp Pulse Resp BP Pulse Ox 08/25/24 11:28 98.3 F 74 17 113/70 96 Intake and Output 08/24/24 08/25/24 08/25/24 22:59 06:59 14:59 Other: Weight 108.862 kg Height 5 feet 9 inches, weight 240 pounds, BMI 35.4. This is a well-developed well-nourished white female who is alert and oriented times 3 in no acute distress. HEENT: Within normal limits. NECK: Supple without mass or thyromegaly. CHEST AND LUNGS: Clear to auscultation. HEART: Regular rate and rhythm. BREASTS: Are without mass or discharge. AXILLARY EXAM: Negative for adenopathy. BACK: Negative for CVA tenderness. ABDOMEN: Soft, nontender, without palpable masses. PELVIC EXAM: Normal external genitalia with mild atrophy. Cervix and vagina appear normal with mild atrophy. There is no unusual discharge. There is no evidence of prolapse. The uterus is midposition, nongravid size and nontender. There are no palpable adnexal masses or tenderness. RECTAL EXAM: Rectovaginal exam is negative for mass or tenderness and is negative for occult blood. EXTREMITIES: Nontender. SKIN: There is a patch of seborrheic keratosis measuring approximately 1 x 1 cm on the left shoulder. This has a benign appearance with smooth border. IMPRESSION: 1. 74-year-old menopausal female with normal gynecologic exam. 2. History of osteoporosis based on her wrist testing. The patient is declining additional testing or treatment. 3. Benign-appearing left shoulder seborrheic keratosis. PLAN: 1. Pap smears have been discontinued. 2. Self breast awareness was discussed with the patient. We have also discussed symptoms associated with inflammatory breast cancer. 3. Screening mammogram will be done today. 4. Osteoporosis management was discussed. I have stressed the importance of adequate calcium, vitamin D and regular exercise. Recommended amounts of calcium and vitamin D were also discussed. We have had a long discussion regarding possible testing and treatment. She is declining any additional testing or treatment at this time. She will let me know if she changes her mind about this. 5. Patient will keep an eye on the skin lesion on the left shoulder. I have reassured her that seborrheic keratosis is benign. If she is noticing changes such as increase in size or irregular borders, she was advised to see a electronic transaction implementer for further evaluation. 6. She was advised to return in one year for her annual well woman exam.
--- NOTE | 2024-08-25 13:08 | MM ---
Reason for Exam: Screening (asymptomatic). Last mammogram was performed 1 year(s) and 9 month(s) ago. Patient History: Menarche at age 14. First Full-Term at age 31. Postmenopausal. Patient has history of breast feeding. Maternal aunt had breast cancer. Risk Values: Marisela 5 year model risk: 2.0%. NCI Lifetime model risk: 5.1%. Prior Study Comparison: 02/01/2022 Left MG work up mamm w CAD LT, [facility]. 05/28/2022 Left MG 3D diag mammo w/cad LT, [facility]. 11/28/2022 Bilateral MG 3D diag mammo w/cad [facility], [facility]. Tissue Density: There are scattered areas of fibroglandular density. Findings: Analyzed By CAD. There is no suspicious group of microcalcifications or new suspicious mass in either breast. Overall Assessment: Negative, BI-RAD 1 Management: Screening Mammogram of both breasts in 1 year. . Patient should continue monthly self-breast exams. A clinical breast exam by your physician is recommended on an annual basis. This exam should not preclude additional follow-up of suspicious palpable abnormalities. Note on Marisela scores and lifetime risk: 1. A Marisela score greater than 3% is considered moderate risk. If this is the case, consider specialist referral to assess eligibility for a risk reducing agent. 2. If overall lifetime risk for the development of breast cancer is 20% or higher, the patient may qualify for future screening with alternating mammogram and breast MRI. [facility], , 08/25/2024 1:06 PM. Electronically signed and approved by: Himanshu Holguin M.D. Radiologis
== END ==
LOC: WWCWWP 11:09
PROVIDERS: ATTEND Obstetrics & Gynecology
DX: Z01.419 Encounter for gynecological examination (general) (routine) without abnormal findings (principal); Z12.31 Encounter for screening mammogram for malignant neoplasm of breast; L82.1 Other seborrheic keratosis; Z88.5 Allergy status to narcotic agent; Z88.2 Allergy status to sulfonamides; Z88.1 Allergy status to other antibiotic agents; Z87.39 Personal history of other diseases of the musculoskeletal system and connective tissue; Z87.891 Personal history of nicotine dependence
CPT/HCPCS: 77063; 77067